=== PATIENT | male | born 1965 | race Caucasian/White ===

== ENCOUNTER 2016-09-23 12:19 | Outpatient (CLI) | payer OTHER | END 2016-09-23 12:20 | disposition home or self-care (01) | DX: M50.30 Other cervical disc degeneration, unspecified cervical region (principal); M47.9 Spondylosis, unspecified ==

== ENCOUNTER 2017-01-22 13:10 | Emergency (ER) | payer OTHER ==
--- NOTE | 2017-01-22 14:45 | ED Physician Documentation ---
History of Present Illness - Stated complaint Stated Complaint: R ARM PX - Chief complaint Chief Complaint: Ext Problem - History obtained from History obtained from: Patient - History of Present Illness Timing: How many days ago (2) Pain level max: 8 Pain level now: 6 Improved by: rest Worsened by: movement, heat - Additonal information Additional information: R shoulder pain x 2 days. Doesn't recall any injury. Pain increased after fishing today. pt is right handed. Review of Systems GI: denies: Abdominal Pain, Nausea, Vomiting Skin: denies: Rash Musculoskeletal: denies: Neck pain, Back pain Neurologic: denies: Focal weakness, Numbness, Headache PD PAST MEDICAL HISTORY - Past Medical History Cardiovascular: Hypertension, High cholesterol Respiratory: Sleep apnea, CPAP use Neuro: None Endocrine/Autoimmune: None GI: None : None HEENT: None, Other Psych: None Musculoskeletal: Osteoarthritis, Other Derm: None - Past Surgical History Past Surgical History: Yes Ortho: Rotator cuff repair, Shoulder arthroplasty, Arthroscopic surgery, Other - Present Medications Home Medications: Ambulatory Orders Medication Instructions Recorded Confirmed Lisinopril 20 mg PO DAILY 12/28/13 01/25/15 Penicillin Vk 500 mg PO Q6H 7 Days 01/26/15 Hydrocodone/Acetaminophen 1 - 2 each PO Q6H PRN #14 tablet 01/22/17 [Hydrocodon-Acetaminophen 5-325] Meloxicam [Mobic] 7.5 mg PO BID PRN #20 tablet 01/22/17 - Allergies Allergies/Adverse Reactions: Allergies Allergy/AdvReac Type Severity Reaction Status Date / Time No Known Drug Allergies Allergy Verified 01/22/17 13:20 - Social History Does the pt smoke?: Yes Smoking Status: Current every day smoker Does the pt drink ETOH?: Yes Does the pt have substance abuse?: No - Immunizations Immunizations are current?: Yes - POLST Patient has POLST: No PD ED PE NORMAL - Vitals Vital signs reviewed: Yes - General General: Alert and oriented X 3, No acute distress - Derm Derm: Warm and dry - Extremities Extremities: Other (limited ROM 2/2 pain. NVI including axillary nerve. no swelling or deformity. TTP over the AC joint. No gross deformity. No pain with supination or pronation.) - Neuro Neuro: Alert and oriented X 3 - Psych Psych: Normal mood, Normal affect Results - Vitals Vitals: Vital Signs - 24 hr 01/22/17 01/22/17 13:17 16:13 Temperature 36.7 C Heart Rate 90 86 Respiratory 18 16 Rate Blood Pressure 160/97 H 141/93 H O2 Saturation 97 96 Oxygen O2 Source Room air - Rads (name of study) R shoulder xRAY Radiology: Prelim report reviewed, EMP read contemporaneously, See rad report ( Increasing marked calcific tendinitis. ) PD MEDICAL DECISION MAKING - ED course Complexity details: reviewed results, re-evaluated patient, considered differential, d/w patient, d/w family ED course: Patient is a 51-year-old male who presents to the emergency department with right shoulder pain. He was tender over the AC joint, therefore an x-ray was obtained which shows increasing calcific tendinitis. Will trial on nonsteroidal anti-inflammatory medications and given steroids here. Will also write pain medication for home. Placed in a sling for comfort for the next 2-3 days. Will have him follow-up with his PCP for further evaluation and care. No evidence of septic joint. No evidence of fracture, dislocation. Patient counseled regarding signs and symptoms for which I believe and urgent re- evaluation would be necessary. Patient with good understanding of and agreement to plan and is comfortable going home at this time This document was made in part using voice recognition software. While efforts are made to proofread this document, sound alike and grammatical errors may occur. Departure - Departure Disposition: 01 Home, Self Care Clinical Impression: Calcific tendinitis Condition: Good Instructions: ED Tendinitis Calcific Follow-Up: Garry Soares MD [Primary Care Provider] - Within 1 week Prescriptions: Hydrocodone/Acetaminophen [Hydrocodon-Acetaminophen 5-325] 1 - 2 each PO Q6H PRN #14 tablet PRN Reason: pain Meloxicam [Mobic] 7.5 mg PO BID PRN #20 tablet PRN Reason: pain Comments: Return if you worsen. Wear the sling for the next 2-3 days and then start to gently move your shoulder. Follow-up with your doctor for further evaluation. You may benefit from physical therapy and/or an orthopedics referral. Do not drink alcohol or drive while on narcotic pain medicine. Note that many narcotic pain relievers also contain tylenol/acetaminophen. Please ensure that your total dose of acetaminophen from all sources does not exceed 3 grams (3000mg) per day. You may constipated on this medication, take a stool softener such as "Colace" twice a day while you are on it. Also recommend a [id number] laxative such as senna or MiraLAX any day that you do not have a bowel movement. If you received narcotic pain medication in the emergency department, do not drive or operate machinery for the next 24 hours. Discharge Date/Time: 01/22/17 16:19
[2017-01-22] MEDS ORDERED: CYCLOBENZAPRINE 10 MG TABLET PO STA (14:48)
[2017-01-22] MEDS ORDERED: KETOROLAC 60 MG/2 ML VIAL IM STA (14:48)
[2017-01-22] MEDS ORDERED: DEXAMETHASONE 10 MG/ML VIAL PO STA (14:48)
[2017-01-22] MEDS ORDERED: DEXAMETHASONE 10 MG/ML VIAL ONE (15:00)
[2017-01-22] MEDS ORDERED: CHERRY SYRUP 10 ML UDC PO ONE (15:00)
[2017-01-22] MEDS ORDERED: CYCLOBENZAPRINE 10 MG TABLET PO ONE (15:00)
[2017-01-22] MEDS ORDERED: KETOROLAC 60 MG/2 ML VIAL ONE (15:00)
--- NOTE | 2017-01-22 15:35 | XRAY Preliminary Report ---
Exam: XR Shoulder 3 View RT IMPRESSION: Increasing marked calcific tendinitis. [facility] SITE ID: [id number]
--- NOTE | 2017-01-22 15:44 | XRAY Report ---
EXAM: RIGHT SHOULDER RADIOGRAPHY EXAM DATE: 01/22/2017 03:21 PM. CLINICAL HISTORY: Right shoulder pain, tenderness over AC joint. COMPARISON: 08/28/2011. TECHNIQUE: 3 views. FINDINGS: Bones: Normal. No fracture or bone lesion. Joints: The glenohumeral and acromioclavicular joints are normal. Soft tissues: Increasing dystrophic calcifications at the supraspinatus musculotendinous junction now almost 10 mm in maximum caliber, previously roughly 2-3 mm. IMPRESSION: Increasing marked calcific tendinitis. [facility] Referring Provider Line: [phone] SITE ID: [id number]
[2017-01-22 16:13] VITALS: BP 141/93
== END 2017-01-22 16:19 | disposition home or self-care (01) ==
LOC: ED 13:10
DX: M75.31 Calcific tendinitis of right shoulder (principal); I10 Essential (primary) hypertension; E78.00 Pure hypercholesterolemia, unspecified; G47.30 Sleep apnea, unspecified; M19.90 Unspecified osteoarthritis, unspecified site; F17.200 Nicotine dependence, unspecified, uncomplicated
CPT/HCPCS: 73030; 96372; 99283; A9270

== ENCOUNTER 2017-12-31 23:40 | Emergency (ER) | payer OTHER ==
[2018-01-01 02:37] LABS: ALBUMIN 3.6 g/dL (3.2-5.5); ALBUMIN/GLOBULIN RATIO 1.1 (1.0-2.2); BILIRUBIN,TOTAL 0.5 mg/dL (0.2-1.0); CALCIUM 9.1 mg/dL (8.5-10.3); CREATININE 1.1 mg/dL (0.6-1.2); TOTAL PROTEIN 6.9 g/dL (6.7-8.2)
[2018-01-01 02:40] LABS: BASOPHILS % (AUTO) 0.2 %; EOSINOPHILS # (AUTO) 0.2 10^3/uL (0.0-0.7); EOSINOPHILS % (AUTO) 2.1 %; HGB - HEMOGLOBIN 14.6 g/dL (14.0-18.0); LYMPHOCYTES # (AUTO) 4.1 10^3/uL (1.5-3.5); LYMPHOCYTES % (AUTO) 35.6 %; MEAN CORPUSCULAR HEMOGLOBIN 30.8 pg (27.0-31.0); MEAN CORPUSCULAR HGB CONC 33.8 g/dL (32.0-36.0); MEAN CORPUSCULAR VOLUME 90.9 fL (80.0-94.0); MEAN PLATELET VOLUME 8.7 fL (7.4-11.4); MONOCYTES # (AUTO) 1.3 10^3/uL (0.0-1.0); NEUTROPHILS # (AUTO) 5.8 10^3/uL (1.5-6.6); NEUTROPHILS % (AUTO) 51.1 %; PLT - PLATELET COUNT 230 10^3/uL (130-450); RED BLOOD COUNT 4.73 10^6/uL (4.70-6.10); RED CELL DISTRIBUTION WIDTH 14.9 % (12.0-15.0); WHITE BLOOD COUNT 11.4 x10^3/uL (4.8-10.8)
--- NOTE | 2018-01-01 02:49 | ED Physician Documentation ---
History of Present Illness - Stated complaint Stated Complaint: HIGH BLOOD PRESSURE - Chief complaint Chief Complaint: General - History obtained from History obtained from: Patient, Family - History of Present Illness Timing: How many weeks ago (1) - Additonal information Additional information: 52-year-old male with a history of hypertension has been recently increased on his metoprolol 200 mg per day. He states that he just does not feel quite right and his blood pressures been elevated. He is come in this evening with blood pressures up to 170 systolic. He does state that he had fish for dinner tonight. He denies any alcohol use. Review of Systems Constitutional: denies: Fever Eyes: denies: Decreased vision Ears: denies: Ear pain Nose: denies: Congestion Throat: denies: Sore throat Cardiac: denies: Chest pain / pressure, Palpitations Respiratory: denies: Dyspnea, Cough GI: denies: Abdominal Pain, Nausea, Vomiting : denies: Dysuria, Frequency Skin: denies: Rash Musculoskeletal: denies: Neck pain, Back pain, Extremity pain Neurologic: denies: Generalized weakness, Focal weakness, Numbness PD PAST MEDICAL HISTORY - Past Medical History Cardiovascular: Hypertension, High cholesterol Respiratory: Sleep apnea, CPAP use Endocrine/Autoimmune: None GI: None : None HEENT: None, Other Psych: None Musculoskeletal: Osteoarthritis, Other Derm: None - Past Surgical History Past Surgical History: Yes Ortho: Rotator cuff repair, Shoulder arthroplasty, Arthroscopic surgery, Other - Present Medications Home Medications: Ambulatory Orders Medication Instructions Recorded Confirmed Lisinopril 20 mg PO DAILY 12/28/13 01/25/15 Penicillin Vk 500 mg PO Q6H 7 Days tablet 01/26/15 Hydrocodone/Acetaminophen 1 - 2 each PO Q6H PRN #14 tablet 01/22/17 [Hydrocodon-Acetaminophen 5-325] Meloxicam [Mobic] 7.5 mg PO BID PRN #20 tablet 01/22/17 - Allergies Allergies/Adverse Reactions: Allergies Allergy/AdvReac Type Severity Reaction Status Date / Time No Known Drug Allergies Allergy Verified 01/22/17 13:20 - Social History Does the pt smoke?: Yes Smoking Status: Current every day smoker Does the pt drink ETOH?: Yes Does the pt have substance abuse?: No - Immunizations Immunizations are current?: Yes - POLST Patient has POLST: No PD ED PE NORMAL - Vitals Vital signs reviewed: Yes (hypertensive moderate) - General General: Alert and oriented X 3, No acute distress, Well developed/nourished - HEENT HEENT: Atraumatic, PERRL, EOMI - Neck Neck: Supple, no meningeal sign, No bony TTP - Cardiac Cardiac: RRR, No murmur - Respiratory Respiratory: No respiratory distress, Clear bilaterally - Abdomen Abdomen: Soft, Non tender - Back Back: No CVA TTP, No spinal TTP - Derm Derm: Normal color, Warm and dry, No rash - Extremities Extremities: No deformity, No edema - Neuro Neuro: Alert and oriented X 3, veterans' coordinator 2-12 intact, No motor deficit, No sensory deficit, Normal speech Eye Opening: Spontaneous Motor: Obeys Commands Verbal: Oriented GCS Score: 15 - Psych Psych: Normal mood, Normal affect Results - Vitals Vitals: Vital Signs - 24 hr 12/31/17 01/01/18 01/01/18 23:54 01:11 03:10 Temperature 36.7 C Heart Rate 86 78 82 Respiratory 17 20 15 Rate Blood Pressure 178/105 H 148/86 H 142/89 H O2 Saturation 97 94 96 Oxygen O2 Source Room air - EKG (time done) 0216 Rate: Rate (enter#) (77) Rhythm: NSR Ischemia: Other (flat T's) Compare to prior EKG: Changed from prior EKG (SPT 01-31-18 rhythm has changed to sinus and the rate has slowed. ) Computer interpretation: Agree with computer - Labs Labs: Laboratory Tests 01/01/18 01/01/18 01/01/18 02:20 02:20 02:20 WBC 11.4 H RBC 4.73 Hgb 14.6 Hct 43.0 MCV 90.9 MCH 30.8 MCHC 33.8 RDW 14.9 Plt Count 230 MPV 8.7 Neut # (Auto) 5.8 Lymph # (Auto) 4.1 H [place] # (Auto) 1.3 H Eos # (Auto) 0.2 Baso # (Auto) 0.0 Absolute Nucleated RBC 0.00 Nucleated RBC % 0.0 Sodium 138 Potassium 3.6 Chloride 105 Carbon Dioxide 25 Anion Gap 8.0 BUN 12 Creatinine 1.1 Estimated GFR (MDRD) 70 L Glucose 128 H Calcium 9.1 Total Bilirubin 0.5 AST 27 ALT 45 Alkaline Phosphatase 59 Troponin I < 0.04 Total Protein 6.9 Albumin 3.6 Globulin 3.3 Albumin/Globulin Ratio 1.1 Lipase 26 Procedures - IVC sono (time) 0100 Bedside IVC sono: IVC measures (cm) (1.67), Euvolemia PD MEDICAL DECISION MAKING - ED course Complexity details: reviewed old records, reviewed results, re-evaluated patient , considered differential, d/w patient, d/w family ED course: 52-year-old male with a history of hypertension on metoprolol has hypertension and without specific symptoms he is come to the emergency department today with an elevated blood pressure. Blood pressure stabilizes here in the emergency department and I suspect this may be a pressure spike secondary to excessive salt consumption after eating some fish. I discussed with the patient hypertensive urgency and relative numbers of blood pressures to be concerned about including diastolics over 120 and systolics over 200. I have asked patient to follow-up with Dr. Soares and have indicated he may need more than one agent. I also did indicate the patient he may have side effects from the metoprolol that are making him not feel well. He has no specificity to what he does not feel well from. - Sepsis Event Vital Signs: Vital Signs - 24 hr 12/31/17 01/01/18 01/01/18 23:54 01:11 03:10 Temperature 36.7 C Heart Rate 86 78 82 Respiratory 17 20 15 Rate Blood Pressure 178/105 H 148/86 H 142/89 H O2 Saturation 97 94 96 Oxygen O2 Source Room air Departure - Departure Disposition: 01 Home, Self Care Clinical Impression: Hypertension Qualifiers: Hypertension type: essential hypertension Qualified Code(s): I10 - Essential ( primary) hypertension Condition: Stable Instructions: ED HTN Established Follow-Up: Garry Soares MD [Primary Care Provider] - Discharge Date/Time: 01/01/18 03:27
[2018-01-01 03:10] VITALS: BP 142/89
== END 2018-01-01 03:27 | disposition home or self-care (01) ==
LOC: ED 23:40
DX: I10 Essential (primary) hypertension (principal); E86.0 Dehydration; E78.00 Pure hypercholesterolemia, unspecified; F17.200 Nicotine dependence, unspecified, uncomplicated
CPT/HCPCS: 36415; 80053; 83690; 84484; 85025; 93005; 99283

== ENCOUNTER 2018-10-07 08:00 | Outpatient (CLI) | payer BC, OTHER ==
[2018-10-07 12:53] LABS: BASOPHILS # (AUTO) 0.1 10^3/uL (0.0-0.1); BASOPHILS % (AUTO) 0.9 %; EOSINOPHILS # (AUTO) 0.3 10^3/uL (0.0-0.7); EOSINOPHILS % (AUTO) 2.7 %; HGB - HEMOGLOBIN 15.8 g/dL (14.0-18.0); LYMPHOCYTES # (AUTO) 3.3 10^3/uL (1.5-3.5); LYMPHOCYTES % (AUTO) 31.5 %; MEAN CORPUSCULAR HEMOGLOBIN 30.3 pg (27.0-31.0); MEAN CORPUSCULAR HGB CONC 33.3 g/dL (32.0-36.0); MEAN CORPUSCULAR VOLUME 91.1 fL (80.0-94.0); MEAN PLATELET VOLUME 9.8 fL (7.4-11.4); MONOCYTES # (AUTO) 1.1 10^3/uL (0.0-1.0); MONOCYTES % (AUTO) 10.6 %; NEUTROPHILS # (AUTO) 5.6 10^3/uL (1.5-6.6); NEUTROPHILS % (AUTO) 54.3 %; PLT - PLATELET COUNT 253 10^3/uL (130-450); RED BLOOD COUNT 5.21 10^6/uL (4.70-6.10); RED CELL DISTRIBUTION WIDTH 14.5 % (12.0-15.0); WHITE BLOOD COUNT 10.3 x10^3/uL (4.8-10.8)
[2018-10-07 13:19] LABS: PLATELET ESTIMATE, MANUAL NORMAL (130-450,000) (NORMAL); PLATELET MORPHOLOGY NORMAL APPEARANCE (NORMAL); RBC MORPHOLOGY (MULTIPLE) NORMAL APPEARANCE (NORMAL)
[2018-10-07 13:23] LABS: ALBUMIN 4.1 g/dL (3.2-5.5); ALBUMIN/GLOBULIN RATIO 1.1 (1.0-2.2); ALKALINE PHOSPHATASE 64 IU/L (42-121); ALT ALANINE AMINOTRANSFERASE 42 IU/L (10-60); AST ASPARTATE AMINOTRANSFERASE 30 IU/L (10-42); BILIRUBIN,TOTAL 0.9 mg/dL (0.2-1.0); BUN - BLOOD UREA NITROGEN 19 mg/dL (6-20); CARBON DIOXIDE - CO2 26 mmol/L (21-32); CHLORIDE 102 mmol/L (101-111); CHOL/HDL RATIO 8.8 (<5.0); CHOLESTEROL 255 mg/dL; CREATININE 1.1 mg/dL (0.6-1.2); GFR - MDRD 70 (>89); GLUCOSE 138 mg/dL (70-100); HDL CHOLESTEROL 29 mg/dL; SODIUM 136 mmol/L (135-145); TOTAL PROTEIN 7.7 g/dL (6.7-8.2)
[2018-10-07 13:32] LABS: HB2 TOTAL 17.3 g/dL; HEMOGLOBIN A1C 0.9 g/dL; HEMOGLOBIN A1C % 6.9 % (4.6-6.2)
[2018-10-07 13:50] LABS: LDL CHOLESTEROL,DIRECT 135 mg/dL; LDLD/HDL RATIO 4.7 (<3.6)
== END 2018-10-07 23:59 | disposition home or self-care (01) ==
LOC: LAB.WCP 08:00
PROVIDERS: ATTEND Family Medicine
DX: E11.9 Type 2 diabetes mellitus without complications (principal); I48.0 Paroxysmal atrial fibrillation; I10 Essential (primary) hypertension; Z12.5 Encounter for screening for malignant neoplasm of prostate
CPT/HCPCS: 36415; 80053; 80061; 83036; 83721; 84153; 85025

== ENCOUNTER 2018-12-21 17:54 | Outpatient (CLI) | payer BC ==
--- NOTE | 2018-12-22 09:52 | XRAY Report ---
Reason: PATELLOFEMORAL DISORDER OF RIGHT KNEE Procedure Date: 12/21/2018 Accession Number: [id number] / [id number] Procedure: XR - Knee 3 View RT CPT Code: FULL RESULT: EXAM: RIGHT KNEE RADIOGRAPHY EXAM DATE: 12/21/2018 06:13 PM. CLINICAL HISTORY: Patellofemoral disorder of right knee. COMPARISON: None. TECHNIQUE: 3 views. FINDINGS: Bones: Normal. No fractures or bone lesions. Joints: Note is made of chondrocalcinosis. There is no joint effusion. There is no subluxation. Joint spaces are mostly preserved. Soft Tissues: Normal. No soft tissue swelling. IMPRESSION: Chondrocalcinosis. [facility]
== END 2018-12-21 17:55 | disposition home or self-care (01) ==
LOC: DI 17:54
PROVIDERS: ATTEND Family Medicine
DX: M11.261 Other chondrocalcinosis, right knee (principal); M22.2X1 Patellofemoral disorders, right knee

== ENCOUNTER 2019-07-14 11:40 | Outpatient (CLI) | payer BC ==
[2019-07-14 18:54] LABS: CALCIUM 9.2 mg/dL (8.5-10.3)
[2019-07-14 18:57] LABS: MICROALBUM/CREATININE RATIO,UR 178.6 ug/mg (<30.0)
[2019-07-14 19:43] LABS: HB2 TOTAL 15.4 g/dL; HEMOGLOBIN A1C 0.83 g/dL; HEMOGLOBIN A1C % 7.1 % (4.6-6.2)
== END 2019-07-14 23:59 | disposition home or self-care (01) ==
LOC: LAB.WCP 11:40
PROVIDERS: ATTEND Family Medicine
DX: E11.9 Type 2 diabetes mellitus without complications (principal); I48.91 Unspecified atrial fibrillation
CPT/HCPCS: 36415; 80048; 82043; 82570; 83036; 84443

== ENCOUNTER 2021-01-07 08:00 | Outpatient (CLI) | payer BC, OTHER | END 2021-01-07 08:01 | disposition home or self-care (01) | LOC: LAB.N 08:00 | PROVIDERS: ATTEND Family Medicine | DX: R05 Cough (principal); Z20.822 Contact with and (suspected) exposure to COVID-19 ==

== ENCOUNTER 2021-01-07 14:38 | Outpatient (CLI) | payer BC, OTHER ==
--- NOTE | 2021-01-07 16:20 | XRAY Report ---
PROCEDURE: Chest 2 View X-Ray INDICATIONS: Cough TECHNIQUE: 2 view(s) of the chest. COMPARISON: 01/31/2014 FINDINGS: Surgical changes and devices: None. Lungs and pleura: No pleural effusions or pneumothorax. Increased interstitial markings in both lung s. No focal consolidation. Mediastinum: Mediastinal contours are normal. Heart size is normal. Bones and chest wall: No suspicious bony abnormalities. Soft tissues appear unremarkable. IMPRESSION: Increased interstitial markings throughout both lungs. Findings could represent pulmonary edema versus atypical infection. Correlate with BNP, white blood cell count, and other relevant clin ical parameters. Reviewed by: Ziyad Alston MD on 01/07/2021 4:18 PM PDT Approved by: Ziyad Alston MD on 01/07/2021 4:18 PM PDT Station ID: [id number]
== END 2021-01-07 23:59 | disposition home or self-care (01) ==
LOC: DI.N 14:38
PROVIDERS: ATTEND Family Medicine
DX: R91.8 Other nonspecific abnormal finding of lung field (principal)

== ENCOUNTER 2021-02-27 08:00 | Outpatient (CLI) | payer OTHER ==
[2021-02-27 18:16] LABS: ALBUMIN 4.2 g/dL (3.2-5.5); ALBUMIN/GLOBULIN RATIO 0.7 (1.0-2.2); BILIRUBIN,TOTAL 0.9 mg/dL (0.2-1.0); CALCIUM 9.4 mg/dL (8.5-10.3); TOTAL PROTEIN 10.2 g/dL (6.7-8.2)
[2021-02-27 18:34] LABS: THYROID STIMULATING HORMONE 1.83 uIU/mL (0.34-5.60)
[2021-02-27 20:28] LABS: ESTIMATED AVERAGE GLUCOSE 137 mg/dL (70-100); HEMOGLOBIN A1c% 6.4 % (4.27-6.07)
== END 2021-02-27 23:59 | disposition home or self-care (01) ==
LOC: LAB.WCP 08:00
PROVIDERS: ATTEND Family Medicine
DX: E78.5 Hyperlipidemia, unspecified (principal); E11.9 Type 2 diabetes mellitus without complications; I10 Essential (primary) hypertension
CPT/HCPCS: 36415; 80053; 82043; 83036; 84443

== ENCOUNTER 2021-08-19 18:16 | Observation (INO) | payer OTHER ==
[2021-08-19] MEDS ORDERED: SODIUM CHLORIDE 0.9% 1,000 ML IV STA ×2 (18:58→20:05)
[2021-08-19] MEDS ORDERED: HYDROmorphone 1 MG/ML CARPUJECT IVP STA ×3 (18:58→20:05)
--- NOTE | 2021-08-19 19:11 | ED Physician Documentation ---
History of Present Illness - Stated complaint Stated Complaint: RIGHT SIDE PAIN - Chief complaint Chief Complaint: Abd Pain - Additonal information Additional information: 56-year-old male presents emergency department for evaluation of Acute right- sided abdominal and rib wall pain. He reports that it feels like he has been punched in the ribs. He is unable to lay supine secondary to the pain. Denies fevers, vomiting, hematuria dysuria or frequency. Pain began yesterday has been intermittent initially but then now constant in nature. No history of similar. Review of Systems Constitutional: denies: Fever, Chills Eyes: reports: Reviewed and negative Ears: reports: Reviewed and negative Throat: reports: Reviewed and negative Cardiac: reports: Reviewed and negative Respiratory: reports: Reviewed and negative GI: reports: Abdominal Pain. denies: Nausea, Vomiting : reports: Reviewed and negative Skin: reports: Reviewed and negative Musculoskeletal: reports: Reviewed and negative Neurologic: reports: Reviewed and negative PD PAST MEDICAL HISTORY - Past Medical History Cardiovascular: Hypertension, High cholesterol Respiratory: Sleep apnea, CPAP use Endocrine/Autoimmune: None GI: None : None HEENT: None, Other Psych: None Musculoskeletal: Osteoarthritis, Other Derm: None - Past Surgical History Past Surgical History: Yes Ortho: Rotator cuff repair, Shoulder arthroplasty, Arthroscopic surgery, Other - Present Medications Home Medications: Ambulatory Orders Medication Instructions Recorded Confirmed Lisinopril 20 mg PO DAILY 12/28/13 01/25/15 Penicillin Vk 500 mg PO Q6H 7 Days tablet 01/26/15 Hydrocodone/Acetaminophen 1 - 2 each PO Q6H PRN #14 tablet 01/22/17 [Hydrocodon-Acetaminophen 5-325] Meloxicam [Mobic] 7.5 mg PO BID PRN #20 tablet 01/22/17 - Allergies Allergies/Adverse Reactions: Allergies Allergy/AdvReac Type Severity Reaction Status Date / Time No Known Drug Allergies Allergy Verified 08/19/21 18:32 - Social History Does the pt smoke?: Yes Smoking Status: Current every day smoker Does the pt drink ETOH?: Yes Does the pt have substance abuse?: No - Immunizations Immunizations are current?: Yes - POLST Patient has POLST: No PD ED PE NORMAL - General General: Alert and oriented X 3, No acute distress, Well developed/nourished - HEENT HEENT: Atraumatic, Moist mucous membranes - Neck Neck: Supple, no meningeal sign, No adenopathy, No JVD - Cardiac Cardiac: RRR, No murmur, No gallop - Respiratory Respiratory: No respiratory distress, Clear bilaterally (diminished right posterior woods) - Abdomen Abdomen: Normal bowel sounds, Soft, Non tender, Other (Unable to elicit abdominal tenderness by deep or light palpation with patient in a sitting or standing position. No CVA tenderness. However the moment patient lays flat he screams in pain and sits up immediately) - Back Back: No CVA TTP, No spinal TTP - Derm Derm: Normal color, Warm and dry, No rash - Extremities Extremities: No deformity - Neuro Neuro: Alert and oriented X 3, stores despatch hand 2-12 intact, No motor deficit Eye Opening: Spontaneous Motor: Obeys Commands Verbal: Oriented GCS Score: 15 Results - Vitals Vitals: Vital Signs - 24 hr 08/19/21 08/19/21 08/19/21 18:30 20:52 20:58 Temperature 36.8 C Heart Rate 116 H 97 Respiratory 22 18 Rate Blood Pressure 160/105 H 153/101 H O2 Saturation 95 91 L 86 L 08/19/21 20:59 Temperature Heart Rate Respiratory Rate Blood Pressure O2 Saturation 94 Oxygen O2 Source Nasal cannula Oxygen Flow Rate 2 - Labs Labs: Laboratory Tests 08/19/21 08/19/21 08/19/21 18:50 19:00 19:00 WBC 17.2 H RBC 4.38 L Hgb 13.6 L Hct 39.5 L MCV 90.2 MCH 31.1 H MCHC 34.4 RDW 17.1 H Plt Count 208 MPV 10.0 Neut # (Auto) Not Reportable Lymph # (Auto) Not Reportable [place] # (Auto) Not Reportable Eos # (Auto) Not Reportable Baso # (Auto) Not Reportable Absolute Nucleated RBC Not Reportable Total Counted 100 Band Neuts % (Manual) 12 H Reactive Lymphs % (Man) 2 Abnorm Lymph % (Manual) 0 Metamyelocytes % 2 H Nucleated RBC % Not Reportable Neutrophils # (Manual) 10.0 H Lymphocytes # (Manual) 5.0 H Monocytes # (Manual) 1.5 H Eosinophils # (Manual) 0.3 Basophils # (Manual) 0.0 Nucleated RBCs 1 Differential Comment MANUAL DIFFERENTIAL Platelet Estimate NORMAL (130-450,000) Platelet Morphology NORMAL APPEARANCE RBC Morph Micro Appear 1+ ANISOCYTOSIS Sodium 130 L Potassium 3.9 Chloride 98 L Carbon Dioxide 23 Anion Gap 9.0 BUN 19 Creatinine 1.1 Estimated GFR (MDRD) 69 L Glucose 126 H Lactic Acid Calcium 9.4 Total Bilirubin 0.7 AST 20 ALT 27 Alkaline Phosphatase 64 Total Protein 11.0 H Albumin 3.9 Globulin 7.1 H Albumin/Globulin Ratio 0.5 L Lipase 30 Urine Color YELLOW Urine Clarity HAZY Urine pH 5.5 Ur Specific [place] >=1.030 H Urine Protein 100 H Urine Glucose (UA) NEGATIVE Urine Ketones NEGATIVE Urine Occult Blood SMALL H Urine Nitrite NEGATIVE Urine Bilirubin NEGATIVE Urine Urobilinogen 0.2 (NORMAL) Ur Leukocyte Esterase NEGATIVE Urine RBC 6-10 H Urine WBC 0-3 Ur Squamous Epith Cells FEW Squamous Urine Bacteria None Seen Ur Microscopic Review INDICATED Urine Culture Comments NOT INDICATED 08/19/21 20:05 WBC RBC Hgb Hct MCV MCH MCHC RDW Plt Count MPV Neut # (Auto) Lymph # (Auto) [place] # (Auto) Eos # (Auto) Baso # (Auto) Absolute Nucleated RBC Total Counted Band Neuts % (Manual) Reactive Lymphs % (Man) Abnorm Lymph % (Manual) Metamyelocytes % Nucleated RBC % Neutrophils # (Manual) Lymphocytes # (Manual) Monocytes # (Manual) Eosinophils # (Manual) Basophils # (Manual) Nucleated RBCs Differential Comment Platelet Estimate Platelet Morphology RBC Morph Micro Appear Sodium Potassium Chloride Carbon Dioxide Anion Gap BUN Creatinine Estimated GFR (MDRD) Glucose Lactic Acid 0.9 Calcium Total Bilirubin AST ALT Alkaline Phosphatase Total Protein Albumin Globulin Albumin/Globulin Ratio Lipase Urine Color Urine Clarity Urine pH Ur Specific [place] Urine Protein Urine Glucose (UA) Urine Ketones Urine Occult Blood Urine Nitrite Urine Bilirubin Urine Urobilinogen Ur Leukocyte Esterase Urine RBC Urine WBC Ur Squamous Epith Cells Urine Bacteria Ur Microscopic Review Urine Culture Comments - Rads (name of study) CXR Radiology: Final report received (Prominent interstitial markings. This could be due to pulmonary edema or atypical infection. Less likely interstitial lung disease) CT Chest abd/pelvis Radiology: Final report received (Focal consolidation right lower lobe. Patchy bibasilar atelectasis. Minimal right pleural effusion. Unremarkable CT of the abdomen and pelvis) PD MEDICAL DECISION MAKING - ED course Complexity details: reviewed results, re-evaluated patient, considered differential, d/w patient ED course: 56-year-old male presents emergency department for evaluation of acute right sided abdominal and chest wall pain. Reports it feels like he was punched in the chest. Pain began about 24 hours ago. Patient is unable to lay flat due to the pain. He denies any cough or fevers. Patient's initial presentation showed significant pain out of proportion on the right side of his chest. Chest x-ray showed prominent interstitial markings or early pulmonary edema. Initial saturations were 94% on room air but over the course of the ED visit his saturations declined about 86% requiring 2 L nasal cannula. Saturations improved to 94% with 2 L nasal cannula. Subsequent lab testing revealed significant leukocytosis white count of 18,000. His lactate was negative. He was initially tachycardic on presentation but this improved after receiving IV fluids. Subsequent CT imaging of the chest abdomen and pelvis revealed pneumonia in the right lower lobe. I initiated ceftriaxone and azithromycin. Given that the patient is mildly hypoxic requiring oxygen therapy he was presented to Dr. Oreilly to 4 further evaluation and treatment. Respiratory PCR is pending. Further care to be dictated by inpatient hospitalist team. Patient was aware and in agreement with admission for treatment of pneumonia Departure - Departure Disposition: ED Place in Observation Clinical Impression: Hypoxia CAP (community acquired pneumonia) Qualifiers: Laterality: right Lung location: lower lobe of lung Qualified Code(s): J18.9 - Pneumonia, unspecified organism
[2021-08-19 19:14] LABS: BASOPHILS % (AUTO) 0.5 %; EOSINOPHILS % (AUTO) 0.8 %; HCT - HEMATOCRIT 39.5 % (42.0-52.0); HGB - HEMOGLOBIN 13.6 g/dL (14.0-18.0); LYMPHOCYTES % (AUTO) 29.6 %; MEAN CORPUSCULAR HEMOGLOBIN 31.1 pg (27.0-31.0); MEAN CORPUSCULAR HGB CONC 34.4 g/dL (32.0-36.0); MEAN CORPUSCULAR VOLUME 90.2 fL (80.0-94.0); MONOCYTES % (AUTO) 11.8 %; PLT - PLATELET COUNT 208 10^3/uL (130-450); RED BLOOD COUNT 4.38 10^6/uL (4.70-6.10); RED CELL DISTRIBUTION WIDTH 17.1 % (12.0-15.0); WHITE BLOOD COUNT 17.2 x10^3/uL (4.8-10.8)
[2021-08-19 19:15] LABS: BILIRUBIN,URINE NEGATIVE (NEGATIVE); GLUCOSE, URINE (UA) NEGATIVE (NEGATIVE); KETONES,URINE (UA) NEGATIVE (NEGATIVE); LEUKOCYTE ESTERASE, URINE NEGATIVE (NEGATIVE); NITRITE,URINE NEGATIVE (NEGATIVE); OCCULT BLOOD,URINE SMALL (NEGATIVE); PH,URINE 5.5 PH (5.0-7.5); PROTEIN,URINE 100 mg/dL (NEGATIVE); UROBILINOGEN,URINE 0.2 (NORMAL) E.U./dL (NORMAL)
[2021-08-19 19:23] LABS: ABNORMAL LYMPHS % (MANUAL) 0 %
[2021-08-19 19:25] LABS: CLARITY,URINE HAZY (CLEAR)
[2021-08-19 19:35] LABS: BACTERIA,URINE None Seen /HPF (None Seen); SQUAMOUS EPITHELIAL CELL,UR FEW Squamous (<= Few); WBC,URINE 0-3 /HPF (0-3)
--- NOTE | 2021-08-19 19:36 | XRAY Report ---
PROCEDURE: Chest 1 View X-Ray INDICATIONS: chest pain TECHNIQUE: One view of the chest was acquired. 2 images. COMPARISON: CXR 01/07/2021, 01/31/2014. FINDINGS: Surgical changes and devices: None. Lungs and pleura: No pleural effusions or pneumothorax. Bibasilar hazy and streaky opacity. Prominen t interstitial markings. Mediastinum: Mediastinal contours appear unchanged. Heart size is normal. Bones and chest wall: No suspicious bony lesions. Overlying soft tissues appear unremarkable. IMPRESSION: Prominent interstitial markings. This could be due to pulmonary edema or atypical infection. Less lik brandon interstitial lung disease. Additional bibasal hazy and streaky opacity which has the appearance of atelectasis. Reviewed by: Mazin Flowers MD on 08/19/2021 7:34 PM PST Approved by: Mazin Flowers MD on 08/19/2021 7:34 PM PST Station ID: [id number]
[2021-08-19] MEDS ORDERED: IOVERSOL 320 100 ML VIAL IVP ONE ×2 (19:51→21:03)
[2021-08-19 19:53] LABS: BAND NEUTROPHILS % (MANUAL) 12 %; DIFFERENTIAL COMMENT MANUAL DIFFERENTIAL; EOSINOPHILS # (MANUAL) 0.3 10^3/uL (0-0.7); LYMPHOCYTES % (MANUAL) 27 %; METAMYELOCYTES % (MANUAL) 2 %; MONOCYTES # (MANUAL) 1.5 10^3/uL (0.0-1.0); NUCLEATED RBC (MANUAL) 1 %; PLATELET ESTIMATE, MANUAL NORMAL (130-450,000) (NORMAL); PLATELET MORPHOLOGY NORMAL APPEARANCE (NORMAL); RBC MORPHOLOGY (MULTIPLE) 1+ ANISOCYTOSIS (NORMAL); REACTIVE LYMPHS % (MANUAL) 2 %
[2021-08-19 20:01] LABS: ALBUMIN 3.9 g/dL (3.2-5.5); ALBUMIN/GLOBULIN RATIO 0.5 (1.0-2.2); BILIRUBIN,TOTAL 0.7 mg/dL (0.2-1.0); CALCIUM 9.4 mg/dL (8.5-10.3); CREATININE 1.1 mg/dL (0.6-1.2); POTASSIUM 3.9 mmol/L (3.5-5.0)
--- NOTE | 2021-08-19 20:54 | CT Report ---
PROCEDURE: Abdomen/Pelvis W INDICATIONS: Right sided abd pain; unable to lay supine CONTRAST: IV CONTRAST: Optiray 320 ml: 100 PO CONTRAST: *NO PO CONTRAST TECHNIQUE: After the administration of contrast, 5 mm thick sections acquired from the diaphragms to the symphy sis. 5 mm thick coronal and sagittal reformats were acquired. For radiation dose reduction, the fol lowing was used: automated exposure control, adjustment of mA and/or kV according to patient size. COMPARISON: CT chest from today. Please refer to separate report for CT chest findings.. FINDINGS: Image quality: Excellent. ABDOMEN: Lung bases: Patchy bibasilar atelectasis and probable consolidation, right greater than left. Minimal right pleural effusion. Heart size is normal. Solid organs: Liver and spleen are normal in size and enhancement. Gallbladder is unremarkable. Bi liary system is non dilated. Pancreas enhances normally. No adrenal nodules. Kidneys demonstrate n ormal size and enhancement, without hydronephrosis. Peritoneum and bowel: Bowel loops demonstrate normal wall thickness and caliber. No free fluid or a ir. Nodes and vessels: No retroperitoneal or mesenteric adenopathy by size criteria. Aorta and inferior vena cava are normal in size. Miscellaneous: No ventral hernias. PELVIS: Genitourinary: Bladder wall thickness is normal. Miscellaneous: No inguinal hernias or adenopathy. Bones: No suspicious bony lesions. No vertebral body compression fractures. IMPRESSION: 1. Patchy bibasilar atelectasis and probable consolidation, right greater than left. Minimal right pl eural effusion. 2. No evidence of acute abdominal process. Reviewed by: Angel Manley MD on 08/19/2021 8:53 PM PST Approved by: Angel Manley MD on 08/19/2021 8:53 PM PST Station ID: [id number]
--- NOTE | 2021-08-19 20:57 | CT Report ---
PROCEDURE: CHEST W INDICATIONS: PNA; right sided abd pain CONTRAST: IV CONTRAST: Optiray 320 ml: 100 PO CONTRAST: *NO PO CONTRAST TECHNIQUE: After the administration of intravenous contrast, 1 mm axial images were acquired from the pulmonary apices through the posterior costophrenic angles. Axial 5 mm soft tissue kernel reconstructions were performed as well as 8 mm axial MIP and coronal and sagittal 5 mm reformations. For radiation dose reduction, the following was used: automated exposure control, adjustment of mA and/or kV according to patient size. COMPARISON: CT abdomen and pelvis from today. FINDINGS: Image quality: Excellent. Lungs and pleura: Focal consolidation, right lower lobe, patchy bibasilar atelectasis. Minimal right pleural effusion. Central and peripheral airways are patent and normal in caliber. Mediastinum: Heart size is normal. No pericardial effusion. No mediastinal or hilar adenopathy by size criteria. Thoracic aorta and central pulmonary arteries are normal in size. Esophagus is harris l in caliber. No hiatal hernia. Bones and chest wall: No suspicious bony lesions. No vertebral body compression fractures. No axil bisi or supraclavicular adenopathy by size criteria. The thyroid is normal in size and there are no incidental findings.. Abdomen: Visualized upper abdominal solid organs appear normal. Upper abdominal bowel loops are nor mal in caliber. IMPRESSION: 1. Focal consolidation, right lower lobe, patchy bibasilar atelectasis. 2. Minimal right pleural effusion. CLINICAL RECOMMENDATION STATEMENTS: In patients <35 years with an ITN detected on CT, MRI, or extrathyroidal ultrasound, the Committee re commends further evaluation with dedicated thyroid ultrasound if the nodule is "e1 cm and has no susp icious imaging features, and if the patient has normal life expectancy. In patients "e35 years with an ITN detected on CT, MRI, or extrathyroidal ultrasound, the Committee r ecommends further evaluation with dedicated thyroid ultrasound if the nodule is "e1.5 cm and has no s uspicious imaging features, and if the patient has normal life expectancy. (ACR, 2014) Reviewed by: Angel Manley MD on 08/19/2021 8:55 PM PST Approved by: Angel Manley MD on 08/19/2021 8:55 PM PST Station ID: [id number]
[2021-08-19] MEDS ORDERED: AZITHROMYCIN INJ 1,000 MG in SODIUM CHLORIDE 0.9% 250 ML IV STA (20:59)
[2021-08-19] MEDS ORDERED: cefTRIAXone 2 GM in SODIUM CHLORIDE 0.9% MINIBAG 100 ML IV STA (20:59)
[2021-08-19] MEDS ORDERED: KETOROLAC 30 MG/ML VIAL IVP STA (21:07)
[2021-08-19] MEDS ORDERED: ONDANSETRON 4 MG/2 ML VIAL IVP PRN (21:08)
[2021-08-19] MEDS ORDERED: ACETAMINOPHEN 325 MG TABLET PO PRN (21:08)
[2021-08-19] MEDS ORDERED: oxyCODONE 5 MG TABLET PO PRN (21:08)
[2021-08-19] MEDS ORDERED: SODIUM CHLORIDE FLUSH 0.9% 10 ML SYRINGE IVP PRN (21:08)
--- NOTE | 2021-08-19 21:15 | HISTORY & PHYSICAL EXAMINATION ---
Chief Complaint - Chief Complaint Chief Complaint: right-sided chest pain History of Present Illness - Admitted From Admitted From:: [facility] ED - History Obtained From Records Reviewed: yes History obtained from: patient - History of Present Illness HPI Comment/Other: 56-year-old male who presented to the ED with complaint of right sided pleuritic pain. He points to his ribs on the right side. Symptoms started 2 days ago. He denies any trauma or injury. He has a nonproductive cough. He denied chest pain, dyspnea, abdominal pain, nausea, vomiting, fever or chills. He was noted to have a white blood cell count of 17.2 in the ED. Further work-up included CT of the abdomen pelvis as well as chest. This showed right-sided consolidation. The patient had difficulties laying flat for the CT due to the pain. As a result he received a total of 2 mg of Dilaudid IV in the ED. He subsequently became hypoxic with oxygen dropping to 86%. He required 2 L of oxygen via nasal cannula to keep his oxygen at 94%. He was presented for admission for continued management. He was given a dose of Rocephin and azithromycin in the ED. He also received a bolus of normal saline in the ED. History - Past Medical History Cardiovascular: reports: Hypertension, High cholesterol Respiratory: reports: Sleep apnea, CPAP use Endocrine/Autoimmune: reports: None GI: reports: None : reports: None HEENT: reports: None, Other Psych: reports: None Musculoskeletal: reports: Osteoarthritis, Other Derm: reports: None MRSA Hx?: No - Past Surgical History Ortho: reports: Rotator cuff repair, Shoulder arthroplasty, Arthroscopic surgery, Other - Family & Social History Family History Comment/Other: Per records, the patient is adopted and does not know either his biological parents or siblings. Social History Notes: He smoke about 3/4 ppd. Smoked for over 28 years. He denied alcohol or recreational substance use. - POLST Patient has POLST: No POLST Status: Full Code Meds/Allgy - Home Medications Home Medications: Ambulatory Orders Medication Instructions Recorded Confirmed Lisinopril 20 mg PO DAILY 12/28/13 01/25/15 Penicillin Vk 500 mg PO Q6H 7 Days tablet 01/26/15 Hydrocodone/Acetaminophen 1 - 2 each PO Q6H PRN #14 tablet 01/22/17 [Hydrocodon-Acetaminophen 5-325] Meloxicam [Mobic] 7.5 mg PO BID PRN #20 tablet 01/22/17 - Allergies Allergies/Adverse Reactions: Allergies Allergy/AdvReac Type Severity Reaction Status Date / Time No Known Drug Allergies Allergy Verified 08/19/21 18:32 Review of Systems - Constitutional Constitutional: denies: Fatigue, Fever, Chills, Weakness - Eyes Eyes: denies: Pain - Ears, Nose & Throat Ears, Nose & Throat: denies: Ear pain, Sore throat - Cardiovascular Cariovascular: denies: Chest pain, Lightheadedness, Syncope - Respiratory Respiratory: reports: Pleuritic pain. denies: Cough, Wheezing, SOB at rest, SOB with exertion - Gastrointestinal Gastrointestinal: denies: Abdominal pain, Abdominal distention, Nausea, Vomiting, Reflux/heartburn - Genitourinary Genitourinary: denies: Dysuria, Frequency, Hematuria - Musculoskeletal Musculoskeletal: denies: Muscle pain, Back pain, Muscle aches, Stiffness - Integumentary Integumentary: denies: Rash, Pruritis, Lesions - Neurological Neurological: denies: General weakness, Focal weakness, Headache - Psychiatric Psychiatric: denies: Depression, Anxiety - Endocrine Endocrine: denies: Polyuria, Polydypsia - Hematologic/Lymphatic Hematologic/Lymphatic: denies: Anemia, Bruising, Petechiae Prior Level of Functionality: Patient is normally independent of activities of daily living Exam - Vital Signs Vital Signs: Vital Signs x48h Temp Pulse Resp BP Pulse Ox 08/19/21 20:59 94 08/19/21 20:58 86 L 08/19/21 20:52 97 18 153/101 H 91 L 08/19/21 18:30 36.8 C 116 H 22 160/105 H 95 - Physical Exam General Appearance: positive: Alert, Moderate distress, Severe distress Eyes Bilateral: positive: PERRL, EOMI ENT: positive: No signs of dehydration Neck: positive: No JVD, Trachea midline Respiratory: positive: Other (Pleuritic pain, Mild dyspnea. No wheezing, rhonchi or crackles) Cardiovascular: positive: Tachycardia (sinus) Abdomen: positive: Non-tender, No organomegaly, Nml bowel sounds, No distention. negative: Guarding, Rebound Back: positive: Nml inspection Skin: positive: Color nml, No rash, Warm, Dry Extremities: positive: Non-tender, Full ROM, Nml appearance, No pedal edema Neurologic/Psychiatric: positive: Oriented x3, Sensation nml, Mood/affect nml Conclusion/Plan - Problem List (1) CAP (community acquired pneumonia) Conclusion/Plan: WBC was 17.2. CT of the chest with contrast showed focal right lower lobe consolidation and patchy bibasilar atelectasis. There was minimal right pleural effusion. Patient was started on Rocephin and azithromycin in the ED. We will continue. Qualifiers: Laterality: right Lung location: lower lobe of lung Qualified Code(s): J18.9 - Pneumonia, unspecified organism (2) Hypoxia Conclusion/Plan: Patient was given 2 mg of Dilaudid IV in order for him to be comfortable enough to undergo a CT study. Patient oxygenation subsequently dropped to the 80s and required 2 L of oxygen via nasal cannula to maintain oxygen saturation above 90%. We will continue supplemental oxygen through the night. (3) Pleuritic chest pain Conclusion/Plan: Likely rate related to pneumonia Patient was given Dilaudid in the ED. He also received a dose of Toradol 30 mg IV x1. We will continue Toradol 15 mg IV every 6 hours as needed. (4) Hyponatremia Conclusion/Plan: Sodium level was 130. Likely hypovolemic hyponatremia. He was given 2 L bolus of fluid in the ED Now receiving IV hydration with normal saline at 100 mL/h. (5) Hypertension Conclusion/Plan: On lisinopril 20 mg p.o. daily. Hydralazine 10 mg every 4 hours as needed for systolic blood pressure greater than 160. Qualifiers: Hypertension type: essential hypertension (6) DAVID on CPAP Conclusion/Plan: Noncompliant with home CPAP. - Lab Results Fish Bones: 08/19/21 19:00 08/19/21 19:00 Core Measures - Anticipated LOS I expect patient to be DC'd or transferred within 96 hours.: Yes - DVT/VTE - Prophylaxis VTE/DVT Device ordered at admit?: Yes VTE/DVT Prophylaxis med ordered at admit?: Yes
[2021-08-19] MEDS ORDERED: cefTRIAXone 2 GM VIAL ONE (21:20)
[2021-08-19] MEDS ORDERED: hydrALAZINE INJ 20 MG/ML VIAL IVP PRN (21:32)
[2021-08-19] MEDS ORDERED: KETOROLAC 15 MG/ML VIAL IVP PRN (21:32)
[2021-08-19 22:04] LABS: B. PARAPERTUSSIS- RESP PCR PAN NOT DETECTED; B. PERTUSSIS- RESP PCR PANEL NOT DETECTED; C. PNEUMONIAE- RESP PCR PANEL NOT DETECTED; CORONAVIRUS 229E-RESP PCR NOT DETECTED; CORONAVIRUS HKU1-RESP PCR NOT DETECTED; CORONAVIRUS NL63-RESP PCR NOT DETECTED; CORONAVIRUS OC43-RESP PCR NOT DETECTED; HUMAN METAPNEUMOVIRUS NOT DETECTED; INFLUENZA A- RESP PCR PANEL NOT DETECTED; INFLUENZA B - RESP PCR PANEL NOT DETECTED; M. PNEUMONIAE- RESP PCR PANEL NOT DETECTED; PARAINFLUENZA VIRUS 1 NOT DETECTED; PARAINFLUENZA VIRUS 2 NOT DETECTED; PARAINFLUENZA VIRUS 3 NOT DETECTED; PARAINFLUENZA VIRUS 4 NOT DETECTED; RHINOVIRUS/ENTEROVIRUS NOT DETECTED; RSV- RESP PCR PANEL NOT DETECTED; SARS-CoV-2 -RESP PCR PANEL NOT DETECTED
[2021-08-19] MEDS: SODIUM CHLORIDE 0.9% 1,000 ML IV SCH (22:53)
[2021-08-19] MEDS: SODIUM CHLORIDE FLUSH 0.9% 10 ML SYRINGE IVP SCH (23:23)
[2021-08-20 05:17] LABS: BASOPHILS % (AUTO) 0.4 %; EOSINOPHILS % (AUTO) 0.4 %; HCT - HEMATOCRIT 34.1 % (42.0-52.0); HGB - HEMOGLOBIN 11.6 g/dL (14.0-18.0); LYMPHOCYTES % (AUTO) 24.2 %; MEAN CORPUSCULAR HEMOGLOBIN 31.3 pg (27.0-31.0); MEAN CORPUSCULAR VOLUME 91.9 fL (80.0-94.0); MEAN PLATELET VOLUME 10.2 fL (7.4-11.4); MONOCYTES % (AUTO) 11.3 %; NEUTROPHILS % (AUTO) 57.4 %; PLT - PLATELET COUNT 179 10^3/uL (130-450); RED BLOOD COUNT 3.71 10^6/uL (4.70-6.10); RED CELL DISTRIBUTION WIDTH 17.2 % (12.0-15.0); WHITE BLOOD COUNT 13.9 x10^3/uL (4.8-10.8)
[2021-08-20 05:24] LABS: CALCIUM 8.6 mg/dL (8.5-10.3); CREATININE 1.1 mg/dL (0.6-1.2); POTASSIUM 3.9 mmol/L (3.5-5.0)
[2021-08-20 05:32] LABS: ABNORMAL LYMPHS % (MANUAL) 0 %
[2021-08-20 05:56] LABS: BAND NEUTROPHILS % (MANUAL) 7 %; DIFFERENTIAL COMMENT MANUAL DIFFERENTIAL; LYMPHOCYTES # (MANUAL) 2.9 10^3/uL (1.5-3.5); LYMPHOCYTES % (MANUAL) 21 %; METAMYELOCYTES % (MANUAL) 1 %; MONOCYTES # (MANUAL) 0.6 10^3/uL (0.0-1.0); MYELOCYTES % (MANUAL) 1 %; NEUTROPHILS # (MANUAL) 10.1 10^3/uL (1.5-6.6); PLATELET ESTIMATE, MANUAL NORMAL (130-450,000) (NORMAL); RBC MORPHOLOGY (MULTIPLE) NORMAL APPEARANCE (NORMAL)
[2021-08-20] MEDS ORDERED: HYDROcod/ACETAM 7.5 MG/325 MG TABLET PO PRN (07:35)
[2021-08-20] MEDS: INSULIN ASPART 300 UNIT/3 ML PEN SUBQ SCH ×4 (07:54→20:56)
[2021-08-20] MEDS: ENOXAPARIN 40 MG/0.4 ML SYRINGE SUBQ SCH (08:11)
[2021-08-20] MEDS: SACCHAROMYCES BOULARDII 250 MG CAPSULE PO SCH ×2 (08:11→18:05)
[2021-08-20] MEDS: AZITHROMYCIN INJ 500 MG in SODIUM CHLORIDE 0.9% 250 ML IV SCH (08:19)
[2021-08-20] MEDS ORDERED: cefTRIAXone 2 GM in SODIUM CHLORIDE 0.9% MINIBAG 100 ML IV SCH (09:00)
[2021-08-20] MEDS ORDERED: cefTRIAXone 1 GM in SODIUM CHLORIDE 0.9% MINIBAG 100 ML IV SCH (09:00)
[2021-08-20] MEDS: SODIUM CHLORIDE FLUSH 0.9% 10 ML SYRINGE IVP SCH ×3 (09:06→23:28)
--- NOTE | 2021-08-20 10:22 | PROVIDER PROGRESS NOTE ---
Assessment/Plan - Problem List (1) CAP (community acquired pneumonia) Qualifiers: Laterality: right Lung location: lower lobe of lung Qualified Code(s): J18.9 - Pneumonia, unspecified organism Assessment/Plan: 08/20 Improved, pt report he feel better. WBC is down to 14, blood culture is pending, we continue IV antibiotics on today. Covid 19 is negative. add Tessalon for cough PRN (2) respiratory failure with Hypoxia 08/20 improved. pt had 92% on room air now, improved from 86% O2 sat on room air at the admission. we continue IV antibiotics for CAP (3) Pleuritic chest pain Conclusion/Plan: . improved, pain is reduced. will continue Toradol PRN and resume home pain meds PRN. pleuritic pain is Likely rate related to pneumonia. troponin is neg ative. EKG has no schemic change. (4) Hyponatremia Conclusion/Plan: improved. Na 131 today, continue gently IVF (5) Hypertension Conclusion/Plan: On lisinopril 20 mg p.o. daily. Hydralazine 10 mg every 4 hours as needed for systolic blood pressure greater than 160. (6) DAVID on CPAP Conclusion/Plan: Noncompliant with home CPAP. - Current Meds Current Meds: Current Medications Generic Name Dose Route Start Last Admin Trade Name Freq PRN Reason Stop Dose Admin Enoxaparin Sodium 40 mg 08/20/21 09:00 08/20/21 08:11 Enoxaparin 40 Mg/0.4 Ml Syringe SUBQ 40 mg DAILY MANUEL Administration Sodium Chloride 1,000 mls @ 100 mls/hr 08/19/21 22:00 08/20/21 10:09 Normal Saline 0.9% IV 100 mls/hr .Q10H MANUEL Infusion Azithromycin 500 mg/ Sodium 250 mls @ 250 mls/hr 08/20/21 09:00 08/20/21 10:09 Chloride IV 08/21/21 09:59 Infused DAILY MANUEL Infusion Insulin Aspart 1 - 5 unit 08/20/21 08:00 08/20/21 07:54 Insulin Aspart 300 Unit/3 Ml Pen SUBQ Not Given 0800,1200,1700,2100 [facility] Protocol Ketorolac Tromethamine 15 mg 08/19/21 21:32 08/20/21 01:05 Ketorolac 15 Mg/Ml Vial IVP 08/24/21 21:31 15 mg Q6HR PRN Administration PAIN Saccharomyces Boulardii 250 mg 08/20/21 08:00 08/20/21 08:11 Saccharomyces Boulardii 250 Mg Capsule PO 250 mg BIDWM MANUEL Administration Sodium Chloride 10 ml 08/19/21 21:08 08/20/21 01:05 Sodium Chloride Flush 0.9% 10 Ml Syringe IVP 10 ml PRN PRN Administration NEEDED PER PROVIDER ORDERS Sodium Chloride 10 ml 08/20/21 01:00 08/20/21 09:06 Sodium Chloride Flush 0.9% 10 Ml Syringe IVP Not Given 0100,0900,1700 MANUEL - Lab Result Fish Bone Diagrams: 08/20/21 05:04 08/20/21 05:04 - Additional Planning My Orders: My Active Orders 08/20/21 05:04 HEMOGLOBIN A1c% [CHEM] Urgent 08/20/21 07:35 HYDROcodone/ACET 7.5/325 [[place] 7.5/325] 1 tab PO Q4HR PRN 08/20/21 08:00 Saccharomyces Boulardii [Florastor] 250 mg PO BIDWM 08/21/21 09:00 cefTRIAXone [Rocephin] 2 gm Sodium Chloride 0.9% Minibag [Normal Saline 0.9% Minibag] 100 ml IV DAILY Subjective - Subjective Patient Reports: Feeling Better, Resting Comfortably Objective Vital Signs: Vital Signs - 24 hr 08/19/21 08/19/21 08/19/21 18:30 20:52 20:58 Temperature 36.8 C Heart Rate 116 H 97 Heart Rate [ Brachial] Respiratory 22 18 Rate Blood Pressure 160/105 H 153/101 H Blood Pressure [Right Brachial artery] O2 Saturation 95 91 L 86 L 08/19/21 08/19/21 08/19/21 20:59 22:00 22:51 Temperature 36.4 C L Heart Rate 88 Heart Rate [ 90 Brachial] Respiratory 24 20 Rate Blood Pressure 139/72 H Blood Pressure 131/79 H [Right Brachial artery] O2 Saturation 94 95 95 08/20/21 08/20/21 08/20/21 04:00 07:49 08:00 Temperature 36.5 C 36.3 C L Heart Rate Heart Rate [ 92 92 Brachial] Respiratory 20 18 Rate Blood Pressure Blood Pressure 139/75 H 120/68 [Right Brachial artery] O2 Saturation 95 96 94 08/20/21 08/20/21 09:10 09:22 Temperature Heart Rate Heart Rate [ Brachial] Respiratory Rate Blood Pressure Blood Pressure [Right Brachial artery] O2 Saturation 93 92 Oxygen O2 Source Room air Oxygen Flow Rate 2 I&O (Last 24 Hrs): Intake and Output Totals x24h 08/18/21 08/19/21 08/20/21 23:59 23:59 23:59 Intake Total 1350 1750 Balance 1350 1750 General: Alert, Oriented x3, Cooperative, No acute distress HEENT: Atraumatic Neck: Supple Lymphatic: no adenopathy Neuro: Alert, Non Focal, Oriented Times 3 Cardiovascular: Regular rate, Normal S1, Normal S2 Respiratory: Chest non-tender, No respiratory distress Abdomen: Normal bowel sounds, Soft Extremities: Normal pulses - Results Results: Laboratory Results WBC 13.9 x10^3/uL (4.8-10.8) H 08/20/21 05:04 RBC 3.71 10^6/uL (4.70-6.10) L 08/20/21 05:04 Hgb 11.6 g/dL (14.0-18.0) L 08/20/21 05:04 Hct 34.1 % (42.0-52.0) L 08/20/21 05:04 MCV 91.9 fL (80.0-94.0) 08/20/21 05:04 MCH 31.3 pg (27.0-31.0) H 08/20/21 05:04 MCHC 34.0 g/dL (32.0-36.0) 08/20/21 05:04 RDW 17.2 % (12.0-15.0) H 08/20/21 05:04 Plt Count 179 10^3/uL (130-450) 08/20/21 05:04 MPV 10.2 fL (7.4-11.4) 08/20/21 05:04 Neut # (Auto) Not Reportable 08/20/21 05:04 Lymph # (Auto) Not Reportable 08/20/21 05:04 [place] # (Auto) Not Reportable 08/20/21 05:04 Eos # (Auto) Not Reportable 08/20/21 05:04 Baso # (Auto) Not Reportable 08/20/21 05:04 Absolute Nucleated RBC Not Reportable 08/20/21 05:04 Total Counted 100 08/20/21 05:04 Band Neuts % (Manual) 7 % (0-10) 08/20/21 05:04 Reactive Lymphs % (Man) 2 % 08/19/21 19:00 Abnorm Lymph % (Manual) 0 % 08/20/21 05:04 Metamyelocytes % 1 % (-0) H 08/20/21 05:04 Myelocytes % 1 % (-0) H 08/20/21 05:04 Nucleated RBC % Not Reportable 08/20/21 05:04 Neutrophils # (Manual) 10.1 10^3/uL (1.5-6.6) H 08/20/21 05:04 Lymphocytes # (Manual) 2.9 10^3/uL (1.5-3.5) 08/20/21 05:04 Monocytes # (Manual) 0.6 10^3/uL (0.0-1.0) 08/20/21 05:04 Eosinophils # (Manual) 0.0 10^3/uL (0-0.7) 08/20/21 05:04 Basophils # (Manual) 0.0 10^3/uL (0-0.1) 08/20/21 05:04 Nucleated RBCs 1 % 08/19/21 19:00 Differential Comment MANUAL DIFFERENTIAL 08/20/21 05:04 Platelet Estimate NORMAL (130-450,000) (NORMAL) 08/20/21 05:04 Platelet Morphology NORMAL APPEARANCE (NORMAL) 08/19/21 19:00 RBC Morph Micro Appear NORMAL APPEARANCE (NORMAL) 08/20/21 05:04 Sodium 131 mmol/L (135-145) L 08/20/21 05:04 Potassium 3.9 mmol/L (3.5-5.0) 08/20/21 05:04 Chloride 100 mmol/L (101-111) L 08/20/21 05:04 Carbon Dioxide 23 mmol/L (21-32) 08/20/21 05:04 Anion Gap 8.0 (6-13) 08/20/21 05:04 BUN 21 mg/dL (6-20) H 08/20/21 05:04 Creatinine 1.1 mg/dL (0.6-1.2) 08/20/21 05:04 Estimated GFR (MDRD) 69 (>89) L 08/20/21 05:04 Glucose 124 mg/dL (70-100) H 08/20/21 05:04 POC Whole Bld Glucose 89 mg/dL (70 - 100) 08/20/21 07:43 Lactic Acid 0.9 mmol/L (0.5-2.2) 08/19/21 20:05 Calcium 8.6 mg/dL (8.5-10.3) 08/20/21 05:04 Total Bilirubin 0.7 mg/dL (0.2-1.0) 08/19/21 19:00 AST 20 IU/L (10-42) 08/19/21 19:00 ALT 27 IU/L (10-60) 08/19/21 19:00 Alkaline Phosphatase 64 IU/L (42-121) 08/19/21 19:00 Troponin I High Sens 11.1 ng/L (2.3-19.7) 08/19/21 19:00 Total Protein 11.0 g/dL (6.7-8.2) H 08/19/21 19:00 Albumin 3.9 g/dL (3.2-5.5) 08/19/21 19:00 Globulin 7.1 g/dL (2.1-4.2) H 08/19/21 19:00 Albumin/Globulin Ratio 0.5 (1.0-2.2) L 08/19/21 19:00 Lipase 30 U/L (22-51) 08/19/21 19:00 Urine Color YELLOW 08/19/21 18:50 Urine Clarity HAZY (CLEAR) 08/19/21 18:50 Urine pH 5.5 PH (5.0-7.5) 08/19/21 18:50 Ur Specific [place] >=1.030 (1.002-1.030) H 08/19/21 18:50 Urine Protein 100 mg/dL (NEGATIVE) H 08/19/21 18:50 Urine Glucose (UA) NEGATIVE mg/dL (NEGATIVE) 08/19/21 18:50 Urine Ketones NEGATIVE mg/dL (NEGATIVE) 08/19/21 18:50 Urine Occult Blood SMALL (NEGATIVE) H 08/19/21 18:50 Urine Nitrite NEGATIVE (NEGATIVE) 08/19/21 18:50 Urine Bilirubin NEGATIVE (NEGATIVE) 08/19/21 18:50 Urine Urobilinogen 0.2 (NORMAL) E.U./dL (NORMAL) 08/19/21 18:50 Ur Leukocyte Esterase NEGATIVE (NEGATIVE) 08/19/21 18:50 Urine RBC 6-10 /HPF (0-5) H 08/19/21 18:50 Urine WBC 0-3 /HPF (0-3) 08/19/21 18:50 Ur Squamous Epith Cells FEW Squamous (<= Few) 08/19/21 18:50 Urine Bacteria None Seen /HPF (None Seen) 08/19/21 18:50 Ur Microscopic Review INDICATED 08/19/21 18:50 Urine Culture Comments NOT INDICATED 08/19/21 18:50 Nasal Adenovirus (PCR) NOT DETECTED 08/19/21 21:01 Nasal B. parapertussis DNA (PCR) NOT DETECTED 08/19/21 21:01 Nasal Coronavir 229E PCR NOT DETECTED 08/19/21 21:01 Nasal Coronavir HKU1 PCR NOT DETECTED 08/19/21 21:01 Nasal Coronavir NL63 PCR NOT DETECTED 08/19/21 21:01 Nasal Coronavir OC43 PCR NOT DETECTED 08/19/21 21:01 Nasal Enterovir/Rhinovir PCR NOT DETECTED 08/19/21 21:01 Nasal Influenza B PCR NOT DETECTED 08/19/21 21:01 Nasal Influenza A PCR NOT DETECTED 08/19/21 21:01 Nasal Parainfluen 1 PCR NOT DETECTED 08/19/21 21:01 Nasal Parainfluen 2 PCR NOT DETECTED 08/19/21 21:01 Nasal Parainfluen 3 PCR NOT DETECTED 08/19/21 21:01 Nasal Parainfluen 4 PCR NOT DETECTED 08/19/21 21:01 Nasal RSV (PCR) NOT DETECTED 08/19/21 21:01 Nasal B.pertussis DNA PCR NOT DETECTED 08/19/21 21:01 Nasal C.pneumoniae (PCR) NOT DETECTED 08/19/21 21:01 Rafat Human Metapneumo PCR NOT DETECTED 08/19/21 21:01 Nasal M.pneumoniae (PCR) NOT DETECTED 08/19/21 21:01 Nasal SARS-CoV-2 (PCR) NOT DETECTED 08/19/21 21:01 - Procedures Procedures: Procedures ANESTH INJEC PERIPH NERV (01/01/14) DESTRUC-SHOULDER LES NEC (11/17/12) OTH CHEST CAGE OSTECTOMY (01/01/14) ABX Reporting Has patient been on IV antibiotics over the past 48 hours?: Yes Current Medications - Current Medications Current Medications: Active Medications Acetaminophen (Acetaminophen 325 Mg Tablet) 650 mg PO Q4HR PRN PRN Reason: Pain 1 to 4 Hydrocodone Bitart/Acetaminophen (Hydrocod/Acetam 7.5 Mg/325 Mg Tablet) 1 tab PO Q4HR PRN PRN Reason: PAIN Benzonatate (Benzonatate 100 Mg Capsule) 100 mg PO TID PRN PRN Reason: Cough Enoxaparin Sodium (Enoxaparin 40 Mg/0.4 Ml Syringe) 40 mg SUBQ DAILY [facility] Last Admin: 08/20/21 08:11 Dose: 40 mg Hydralazine HCl (Hydralazine Inj 20 Mg/Ml Vial) 10 mg IVP Q4H PRN PRN Reason: PER PHYSICIAN ORDER Sodium Chloride (Normal Saline 0.9%) 1,000 mls @ 100 mls/hr IV .Q10H [facility] Stop: 08/20/21 17:59 Last Infusion: 08/20/21 10:09 Dose: 100 mls/hr Azithromycin 500 mg/ Sodium (Chloride) 250 mls @ 250 mls/hr IV DAILY [facility] Stop: 08/21/21 09:59 Last Infusion: 08/20/21 10:09 Dose: Infused Ceftriaxone Sodium 2 gm/ (Sodium Chloride) 100 mls @ 200 mls/hr IV DAILY [facility] Insulin Aspart (Insulin Aspart 300 Unit/3 Ml Pen) 1 - 5 unit SUBQ 0800,1200,1700,2100 [facility]; Protocol Last Admin: 08/20/21 07:54 Dose: Not Given Ketorolac Tromethamine (Ketorolac 15 Mg/Ml Vial) 15 mg IVP Q6HR PRN PRN Reason: PAIN Stop: 08/24/21 21:31 Last Admin: 08/20/21 01:05 Dose: 15 mg Ondansetron HCl (Ondansetron 4 Mg/2 Ml Vial) 4 mg IVP Q6HR PRN PRN Reason: Nausea / Vomiting Saccharomyces Boulardii (Saccharomyces Boulardii 250 Mg Capsule) 250 mg PO BIDWM [facility] Last Admin: 08/20/21 08:11 Dose: 250 mg Sodium Chloride (Sodium Chloride Flush 0.9% 10 Ml Syringe) 10 ml IVP PRN PRN PRN Reason: NEEDED PER PROVIDER ORDERS Last Admin: 08/20/21 01:05 Dose: 10 ml Sodium Chloride (Sodium Chloride Flush 0.9% 10 Ml Syringe) 10 ml IVP 0100,0900,1700 MANUEL Last Admin: 08/20/21 09:06 Dose: Not Given Atorvastatin [Lipitor] 10 mg PO QPM 08/20/21 Losartan [Cozaar] 100 mg PO DAILY 08/20/21 Metoprolol Succinate 100 mg PO DAILY 08/20/21 Spironolactone [Aldactone] 25 mg PO DAILY 08/20/21 metFORMIN [Glucophage] 500 mg PO BIDWM 08/20/21
[2021-08-20] MEDS ORDERED: BENZONATATE 100 MG CAPSULE PO PRN (10:24)
[2021-08-20] MEDS: SODIUM CHLORIDE 0.9% 1,000 ML IV SCH (10:42)
[2021-08-20 10:45] LABS: ESTIMATED AVERAGE GLUCOSE 148 mg/dL (70-100); HEMOGLOBIN A1c% 6.8 % (4.27-6.07)
[2021-08-20] MEDS ORDERED: SODIUM CHLORIDE 0.9% 1,000 ML IV SCH (11:00)
--- NOTE | 2021-08-20 18:30 | PHARMACY PROGRESS NOTE ---
- Best Possible Medication History Admit Date and Time: 08/19/212107 Processed by: Pharmacy Medication History completed: Yes Secondary Source(s): Insurance records As the person ultimately responsible for medication therapy, providers are able to order a medication from an existing home medication list in [facility] via the "Reconcile Routine" prior to Confirmation of that medication by technical support coordinator. Such practice is discouraged except when the physician, in their clinical judgment, deems that a medical need exists for a medication without regard to previous use.
[2021-08-21 05:10] LABS: BASOPHILS # (AUTO) 0.1 10^3/uL (0.0-0.1); BASOPHILS % (AUTO) 0.5 %; EOSINOPHILS # (AUTO) 0.1 10^3/uL (0.0-0.7); EOSINOPHILS % (AUTO) 1.2 %; HCT - HEMATOCRIT 33.7 % (42.0-52.0); HGB - HEMOGLOBIN 11.7 g/dL (14.0-18.0); LYMPHOCYTES # (AUTO) 3.6 10^3/uL (1.5-3.5); LYMPHOCYTES % (AUTO) 31.8 %; MEAN CORPUSCULAR HEMOGLOBIN 31.6 pg (27.0-31.0); MEAN CORPUSCULAR HGB CONC 34.7 g/dL (32.0-36.0); MEAN CORPUSCULAR VOLUME 91.1 fL (80.0-94.0); MEAN PLATELET VOLUME 9.9 fL (7.4-11.4); MONOCYTES # (AUTO) 1.4 10^3/uL (0.0-1.0); MONOCYTES % (AUTO) 12.5 %; NEUTROPHILS # (AUTO) 5.6 10^3/uL (1.5-6.6); NEUTROPHILS % (AUTO) 49.8 %; PLT - PLATELET COUNT 177 10^3/uL (130-450); WHITE BLOOD COUNT 11.2 x10^3/uL (4.8-10.8)
[2021-08-21 05:16] LABS: CALCIUM 8.4 mg/dL (8.5-10.3); CREATININE 0.9 mg/dL (0.6-1.2); POTASSIUM 3.9 mmol/L (3.5-5.0)
[2021-08-21] MEDS: INSULIN ASPART 300 UNIT/3 ML PEN SUBQ SCH (07:57)
[2021-08-21] MEDS: SACCHAROMYCES BOULARDII 250 MG CAPSULE PO SCH (08:19)
[2021-08-21] MEDS: ENOXAPARIN 40 MG/0.4 ML SYRINGE SUBQ SCH (08:19)
[2021-08-21] MEDS: SODIUM CHLORIDE FLUSH 0.9% 10 ML SYRINGE IVP SCH (08:20)
--- NOTE | 2021-08-21 08:31 | Discharge Plan ---
Discharge Plan Problem Reviewed?: Yes Disposition: Home, Self Care Condition: Stable Prescriptions: cefUROXime axetiL [Ceftin] 500 mg PO Q12H 5 Days #20 tablet Saccharomyces Boulardii [Florastor] 250 mg PO BIDWM #10 cap Diet: Diabetic Activity Restrictions: Activity as Tolerated Shower Restrictions: No (fall precaution) Instruction Topics: Cefuroxime tablets, Pneumonia Health Concerns: pneumonia Plan of Treatment: You were found to have pneumonia. After you were treated with antibiotics, your symptoms were resolved, and you have 98% O2 sats on room air. You are prescribed antibiotics to finish the treatment course. You may resume your home medications. Care Goals: Stabilization and improvement/resolved of your medical issue. Assessment: Discussed the care plan with you, answered your questions, you understood Additional Instructions or Follow Up instructions: You may follow-up with your PCP in 1 to 2 weeks, should your symptoms return or worse, you may present to the ER or call 911 for help No Smoking: If you smoke, Please STOP! Call for help. Follow-up with: Triny Francisco ARNP [Primary Care Provider] -
--- NOTE | 2021-08-21 08:36 | DISCHARGE SUMMARY ---
Discharge Summary Admit Date: 08/19/21 Discharge Date: 08/21/21 Discharging Provider: Padilla Lemos Primary Care Provider: Triny Snyder Code Status: Attempt Resuscitation Condition at Discharge: Stable Discharge Disposition: 01 Home, Self Care Discharge Facility Name: home - DIAGNOSES Discharge Diagnoses with Status of Each Condition: (1) CAP (community acquired pneumonia) significantly improved. pt has 95% O2 sat on room air. he walk without respiratory distress. pt is prescribed antibiotics to finish the treatment course. (2) respiratory failure with Hypoxia resolved. pt has 95% O2 sat on room air. he walk without respiratory distress. (3) Pleuritic chest pain resolved. no more pain (4) Hyponatremia Na is 133 today. (5) Hypertension stable, resume home meds (6) DAVID on CPAP stable, resume home CPAP - HPI History of Present Illness: refer from Dr Abbey Oreilly's HPI on 08/19/21 56-year-old male who presented to the ED with complaint of right sided pleuritic pain. He points to his ribs on the right side. Symptoms started 2 days ago. He denies any trauma or injury. He has a nonproductive cough. He denied chest pain, dyspnea, abdominal pain, nausea, vomiting, fever or chills. He was noted to have a white blood cell count of 17.2 in the ED. Further work-up included CT of the abdomen pelvis as well as chest. This showed right-sided consolidation. The patient had difficulties laying flat for the CT due to the pain. As a result he received a total of 2 mg of Dilaudid IV in the ED. He subsequently became hypoxic with oxygen dropping to 86%. He required 2 L of oxygen via nasal cannula to keep his oxygen at 94%. He was presented for admission for continued management. He was given a dose of Rocephin and azithromycin in the ED. He also received a bolus of normal saline in the ED. - ALLERGIES Allergies/Adverse Reactions: Allergies Allergy/AdvReac Type Severity Reaction Status Date / Time No Known Drug Allergies Allergy Verified 08/19/21 18:32 - MEDICATIONS Home Medications: Ambulatory Orders Medication Instructions Recorded Confirmed Atorvastatin [Lipitor] 10 mg PO QPM 08/20/21 08/20/21 Losartan [Cozaar] 100 mg PO DAILY 02/23/22 02/23/22 Metoprolol Succinate 100 mg PO DAILY 08/20/21 08/20/21 Spironolactone [Aldactone] 25 mg PO DAILY 08/20/21 08/20/21 metFORMIN [Glucophage] 500 mg PO BIDWM 08/20/21 08/20/21 Saccharomyces Boulardii [Florastor] 250 mg PO BIDWM #10 cap 08/21/21 cefUROXime axetiL [Ceftin] 500 mg PO Q12H 5 Days #20 tablet 08/21/21 - PHYSICAL EXAM AT DISCHARGE General Appearance: positive: No acute distress, Alert. negative: Lethargic Eyes Bilateral: positive: Normal inspection, No lid inflammation ENT: positive: ENT inspection nml, No signs of dehydration. negative: Purulent nasal drainage Neck: positive: Nml inspection, Trachea midline. negative: Tracheal deviation Respiratory: positive: Chest non-tender, No respiratory distress. negative: Wheezes, Rales Cardiovascular: positive: Regular rate & rhythm. negative: Tachycardia, Bradycardia, Systolic murmur Peripheral Pulses: positive: 2+ Abdomen: positive: Non-tender, Nml bowel sounds, No distention. negative: Tenderness Back: positive: Nml inspection Skin: positive: Color nml, Warm, Dry. negative: Cyanosis Extremities: positive: Non-tender, Full ROM, Nml appearance Neurologic/Psychiatric: positive: Oriented x3, Motor nml, Sensation nml, Mood/affect nml. negative: Weakness, Sensory loss, Facial droop, Slurred/abnml speech, Depressed mood/affect - LABS Result Diagrams: 08/21/21 04:58 08/21/21 04:58 - FOLLOW UP Follow Up: You were found to have pneumonia. After you were treated with antibiotics, your symptoms were resolved, and you have 98% O2 sats on room air. You are prescribed antibiotics to finish the treatment course. You may resume your home medications. You may follow-up with your PCP in 1 to 2 weeks, should your symptoms return or worse, you may present to the ER or call 911 for help - TIME SPENT Time Spent in Discharge (Minutes): 30
[2021-08-21] MEDS ORDERED: LOSARTAN 50 MG TABLET PO SCH ×2 (09:00)
[2021-08-21] MEDS ORDERED: SPIRONOLACTONE 25 MG TABLET PO SCH ×2 (09:00)
[2021-08-21] MEDS ORDERED: polyethylene glycoL 3350 17 GM PACKET PO SCH (09:00)
[2021-08-21] MEDS ORDERED: cefTRIAXone 2 GM in SODIUM CHLORIDE 0.9% MINIBAG 100 ML IV SCH (09:00)
[2021-08-21] MEDS ORDERED: METOPROLOL SUCCINATE 50 MG TABLET PO SCH (09:00)
[2021-08-21] MEDS: AZITHROMYCIN INJ 500 MG in SODIUM CHLORIDE 0.9% 250 ML IV SCH (09:10)
[2021-08-21 11:32] VITALS: BP 153/80
== END 2021-08-21 11:15 | disposition home or self-care (01) ==
LOC: ED 18:16 → MS2 21:08
PROVIDERS: ADMIT Internal Medicine; ATTEND Nurse Practitioner Gerontology
DX: J18.9 Pneumonia, unspecified organism (principal); J96.91 Respiratory failure, unspecified with hypoxia; D72.829 Elevated white blood cell count, unspecified; E78.00 Pure hypercholesterolemia, unspecified; E87.1 Hypo-osmolality and hyponatremia; I10 Essential (primary) hypertension; M19.90 Unspecified osteoarthritis, unspecified site; F17.200 Nicotine dependence, unspecified, uncomplicated; G47.33 Obstructive sleep apnea (adult) (pediatric); R00.0 Tachycardia, unspecified; Z20.822 Contact with and (suspected) exposure to COVID-19; Z79.899 Other long term (current) drug therapy
CPT/HCPCS: 0202U; 36415; 71045; 71260; 74177; 80048; 80053; 81001; 83036; 83605; 83690; 84484; 85025; 87040; 93005; 96365; 96366; 96367; 96372; 96375; 96376; 99284; 99285; A9270; G0378; J1170; J1650; Q9967; 81003; 87086

== ENCOUNTER 2021-11-23 15:56 | Emergency (ER) | payer OTHER ==
[2021-11-23 16:02] VITALS: BP 133/65
[2021-11-23] MEDS ORDERED: HYDROmorphone 1 MG/ML CARPUJECT IM STA ×2 (16:14→17:17)
--- NOTE | 2021-11-23 16:19 | ED Physician Documentation ---
History of Present Illness - Stated complaint Stated Complaint: BACK PX - Chief complaint Chief Complaint: Back Pain - Additonal information Additional information: 56-year-old male presents emergency department for evaluation of 1 month of low back pain. Denies any pre-existing falls or trauma. He states that intermittently but now with increased frequency he feels his low back seized up on him. It often literally will drop him to his knees. He states that taking a warm shower often helps relax the back pain. He is taken 400 mg of Motrin and or 500 mg of Tylenol with minimal relief. He has no radiation of the pain. No fevers. No saddle anesthesia. He is a diabetic but no history of injection drug use. No loss of bowel or bladder function Review of Systems Constitutional: denies: Fever, Chills Throat: reports: Reviewed and negative Cardiac: reports: Reviewed and negative Respiratory: reports: Reviewed and negative GI: reports: Reviewed and negative Skin: reports: Reviewed and negative Musculoskeletal: reports: Back pain Neurologic: reports: Reviewed and negative Psychiatric: reports: Reviewed and negative PD PAST MEDICAL HISTORY - Past Medical History Cardiovascular: Hypertension, High cholesterol Respiratory: Sleep apnea, CPAP use Endocrine/Autoimmune: None GI: None : None HEENT: None, Other Psych: None Musculoskeletal: Osteoarthritis, Other Derm: None - Past Surgical History Past Surgical History: Yes Ortho: Rotator cuff repair, Shoulder arthroplasty, Arthroscopic surgery, Other - Present Medications Home Medications: Ambulatory Orders Medication Instructions Recorded Confirmed Atorvastatin [Lipitor] 10 mg PO QPM 08/20/21 08/20/21 Losartan [Cozaar] 100 mg PO DAILY 08/20/21 08/20/21 Metoprolol Succinate 100 mg PO DAILY 08/20/21 08/20/21 Spironolactone [Aldactone] 25 mg PO DAILY 08/20/21 08/20/21 metFORMIN [Glucophage] 500 mg PO BIDWM 08/20/21 08/20/21 Saccharomyces Boulardii [Florastor] 250 mg PO BIDWM #10 cap 08/21/21 cefUROXime axetiL [Ceftin] 500 mg PO Q12H 5 Days #20 tablet 08/21/21 Ondansetron Odt [Zofran] 4 mg TL Q6H PRN #10 tablet 11/23/21 methocarbamoL [Methocarbamol] 750 mg PO BID PRN #15 tablet 11/23/21 oxyCODONE [Roxicodone] 5 mg PO TID PRN #20 tablet 11/23/21 - Allergies Allergies/Adverse Reactions: Allergies Allergy/AdvReac Type Severity Reaction Status Date / Time No Known Drug Allergies Allergy Verified 11/23/21 15:59 - Social History Does the pt smoke?: Yes Smoking Status: Current some day smoker Does the pt drink ETOH?: Yes Does the pt have substance abuse?: No - Immunizations Immunizations are current?: Yes - POLST Patient has POLST: No POLST Status: Full Code PD ED PE NORMAL - General General: Alert and oriented X 3, No acute distress - HEENT HEENT: Atraumatic, Moist mucous membranes - Neck Neck: Supple, no meningeal sign - Cardiac Cardiac: RRR, No murmur - Respiratory Respiratory: No respiratory distress - Abdomen Abdomen: Normal bowel sounds, Soft - Back Back: No CVA TTP. No: No spinal TTP (Mild lower midline lumbar tenderness to palpation. Negative straight leg bilaterally. Motor strength is 5 of 5. Very antalgic gait though unassisted. 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 Eye Opening: Spontaneous Motor: Obeys Commands Verbal: Oriented GCS Score: 15 - Psych Psych: Normal mood Results - Vitals Vitals: Vital Signs - 24 hr 11/23/21 15:59 Temperature 36.5 C Heart Rate 82 Respiratory 16 Rate Blood Pressure 133/65 H O2 Saturation 98 Oxygen O2 Source Room air - Labs Labs: Laboratory Tests 11/23/21 11/23/21 18:04 18:04 WBC 12.0 H RBC 3.91 L Hgb 12.0 L Hct 36.1 L MCV 92.3 MCH 30.7 MCHC 33.2 RDW 18.3 H Plt Count 238 MPV 9.5 Neut # (Auto) Not Reportable Lymph # (Auto) Not Reportable [place] # (Auto) Not Reportable Eos # (Auto) Not Reportable Baso # (Auto) Not Reportable Absolute Nucleated RBC Not Reportable Total Counted 100 Band Neuts % (Manual) 9 Abnorm Lymph % (Manual) 0 Metamyelocytes % 2 H Myelocytes % 2 H Nucleated RBC % Not Reportable Neutrophils # (Manual) 5.8 Lymphocytes # (Manual) 4.7 H Monocytes # (Manual) 0.6 Eosinophils # (Manual) 0.4 Basophils # (Manual) 0.1 Differential Comment MANUAL DIFFERENTIAL WBC Morphology NORMAL APPEARANCE Platelet Estimate NORMAL (130-450,000) Platelet Morphology NORMAL APPEARANCE RBC Morph Micro Appear 1+ ANISOCYTOSIS Sodium 134 L Potassium 3.9 Chloride 102 Carbon Dioxide 25 Anion Gap 7.0 BUN 23 H Creatinine 1.0 Estimated GFR (MDRD) 77 L Glucose 107 H Calcium 9.6 Total Bilirubin 0.3 AST 22 ALT 28 Alkaline Phosphatase 47 Total Protein 11.3 H Albumin 3.4 Globulin 7.9 H Albumin/Globulin Ratio 0.4 L Lipase 27 - Rads (name of study) Lumbar CT Radiology: Final report received (Diffuse bony metastatic disease until proven otherwise with a pathologic fracture seen on the L4 level. These abnormal findings have developed since the prior CT dated 08/19/2021) chest CT wo Radiology: Final report received (Throughout the bones numerous small lytic lesions are seen which are new compared to the CT in July 2021 and represent metastatic disease. No thoracic pathologic fracture seen. No clair primary masses seen. Within the right upper lobe there is a 4 mm nodule similar to prior exam.) CT abd wo Radiology: Final report received (Primary masses not identified to the limits of this noncontrast CT. Diffuse bony metastatic disease is seen with innumerable lytic lesions including an L4 focus with pathologic fracture.) PD MEDICAL DECISION MAKING - ED course Complexity details: reviewed old records, reviewed results, re-evaluated patient, considered differential, d/w patient, d/w family ED course: 56-year-old male presents emergency department for evaluation of midline severe low back pain that began about 1 Month ago. Denies any falls or trauma. With the exception of age he had no red flags. However he did have focal midline tenderness and pain out of proportion given history therefore a CT of his lumbar spine was completed. Unfortunately it did show a pathologic fracture at L4. Screening labs showed no acute worrisome findings. Unfortunately there is a national shortage of IV contrast therefore we did noncontrast CT imaging of the chest abdomen and pelvis. Unfortunately we could not find a primary source. Given the national shortage of IV contrast the patient may require MRI imaging for further evaluation. CT imaging findings were discussed with the patient his and his son at the bedside. A prescription for oxycodone will be sent to [facility] in [place]. He ambulates well using a walker and has a few walkers at home to use. Red flag and emergent return precautions were discussed otherwise patient will follow-up with primary care provider to obtain appropriate referral to hematology oncology as well as further imaging which may include MRI imaging to find a primary source. I am prescribing a short course of short-acting opioid pain medication for this patient. 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 I have discussed that the opioids are for short term therapy only, and will not be refilled from the ED. Departure - Departure Disposition: Home, Self Care Clinical Impression: Lumbar vertebral fracture, pathologic Qualifiers: Encounter type: initial encounter Qualified Code(s): M84.48XA - Pathological fracture, other site, initial encounter for fracture Condition: Stable Record reviewed to determine appropriate education?: Yes Prescriptions: methocarbamoL [Methocarbamol] 750 mg PO BID PRN #15 tablet PRN Reason: Spasms oxyCODONE [Roxicodone] 5 mg PO TID PRN #20 tablet PRN Reason: Pain Ondansetron Odt [Zofran] 4 mg TL Q6H PRN #10 tablet PRN Reason: Nausea / Vomiting Comments: Oren you are seen today in the emergency department for severe pain in your lower back. Unfortunately the CT imaging of your lumbar spine shows a pathologic fracture of your fourth lumbar vertebrae. This most likely means that you have a metastatic cancer. We did do CT imaging of the chest abdomen pelvis but did not find a primary source. Unfortunately due to the national shortage of IV contrast at this Was not the ideal imaging. Because were unable to give IV contrast your primary provider may need to consider outpatient MRI imaging to determine the source of your cancer. Your primary provider may also need to make a referral for you to hematology and oncology. I am sending a prescription for oxycodone to the pharmacy [facility] in [place]. I am also sent a prescription for some nausea and muscle relaxer medication. If at any point your back pain worsens, you develop numbness or tingling in your genital area, are unable to control your bowel or bladder function you must return immediately to the emergency department. I am prescribing a short course of narcotic pain medication for you. These are potentially dangerous and addictive medications that should be used carefully. These medications may constipate you. Take an owme-jxn-cqxwrsu stool softener (docusate) twice daily with plenty of water while taking these medications. If you go 24 hours without a bowel movement, take mhlj-jyh-rpsqrck miralax, per package instructions. Do not drink or drive while taking these medications. If you received narcotic or sedating medications while in the emergency department, do not drive for 24 hours. Store this medication in a safe, secure place and out of reach of children. It is a violation of federal law to give or sell this medication to another person or to use in a manner other than prescribed. The ED will not refill narcotic prescriptions, including prescriptions lost or stolen. To dispose of unwanted medications: 1. [facility] at [address] in [place] has a medication drop box. They accept prescription medications (in pill form) Wednesday through Wednesday 9:00 a.m. to 5:00 p.m. 2. The [facility] [employer] accepts prescription medications (in pill form only) for disposal year round. Call for more information. 3. Contact the [facility] for the next [facility] sponsored prescription drug collection event. , [phone], or [phone]; Note that many narcotic pain relievers also contain Tylenol/acetaminophen. Please ensure that your total dose of acetaminophen from all sources does not exceed 3 g (3000 mg) per day.
[2021-11-23] MEDS ORDERED: KETOROLAC 30 MG/ML VIAL IM STA (17:17)
--- NOTE | 2021-11-23 17:55 | CT Report ---
PROCEDURE: LUMBAR SPINE WO INDICATIONS: low back pain X 1 months TECHNIQUE: Noncontrast 3 mm thick sections acquired from the T12 level to the sacrum. Sagittal and coronal refo rmats were constructed. For radiation dose reduction, the following was used: automated exposure co ntrol, adjustment of mA and/or kV according to patient size. COMPARISON: Correlation is made with the prior abdomen pelvis CT, 08/19/2021 FINDINGS: Image quality: Excellent. Bones: The bones demonstrate a diffusely mottled appearance, with notable lytic lesions. The most pr ominent of these lytic lesions can be seen within the anterior aspect of L4, with a pathologic fractu re involving the anterior-inferior aspect of this vertebral body, with 30% loss of height. This can b e seen on series 6 image 25 and on series 7 image 35. No acute vertebral body compression fractures. Central spinal caliber is of normal overall caliber. Bilateral L5 pars defects can be seen, with minimal L5-S1 anterolisthesis. T12-L1: The disc height is relatively well preserved. Mild disc bulge is seen. There is mild to mo derate right-sided and mild left-sided neuroforaminal narrowing. No significant central canal narrowi ng is seen. L1-L2: The disc height is well-preserved. Mild to moderate bilateral neuroforaminal narrowing is s een. No significant central canal narrowing is seen. L2-L3: The disc height is well-preserved. Mild disc bulge is seen. There is mild left-sided and minimal right-sided neuroforaminal narrowing. Mild central canal narrowing is seen. L3-L4: Mild loss of disc height is seen. Mild to moderate disc bulge is seen. Mild facet hypertrop hy is seen. Mild bilateral neural foraminal narrowing is seen. Mild to moderate central canal narr owing is seen. L4-L5: The disc height is relatively well preserved. Mild to moderate disc bulge is seen. Moderate facet hypertrophy is seen. There is moderate right-sided and no minimal left-sided neuroforaminal n arrowing. No significant central canal narrowing is seen. No significant neural foraminal or central canal narrowing can be seen. L5-S1: The disc height is well-preserved. No significant disc bulge is seen. Mild facet hypertroph y is seen. Minimal foraminal narrowing can be seen. The central canal is widely patent. Soft tissues: No retroperitoneal masses or hematomas. Visualized aorta is normal in caliber. Ather osclerotic calcification is seen. A normal appendix is incidentally noted. Diffuse fatty liver infil tration can be seen. IMPRESSION: Diffuse bony metastatic disease until proven otherwise, with a pathologic fracture seen of the L4 lev el. These abnormal findings have developed since the recent prior CT dated 08/19/2021. Multiple levels of mild to moderate age-appropriate degenerative changes are seen. Bilateral L5 pars defects, with minimal L5-S1 anterolisthesis. On these images, a primary neoplasm is not seen. Note: Case discussed by telephone with Lisa Tabor at 4:51 PM [place] time on 11/23/2021. Reviewed by: Nimesh Timmons MD on 11/23/2021 4:53 PM MARJORIE Approved by: Nimesh Timmons MD on 11/23/2021 4:53 PM MARJORIE Station ID: [id number]
[2021-11-23 18:12] LABS: BASOPHILS % (AUTO) 0.7 %; EOSINOPHILS % (AUTO) 1.4 %; HCT - HEMATOCRIT 36.1 % (42.0-52.0); LYMPHOCYTES % (AUTO) 39.2 %; MEAN CORPUSCULAR HEMOGLOBIN 30.7 pg (27.0-31.0); MEAN CORPUSCULAR HGB CONC 33.2 g/dL (32.0-36.0); MEAN CORPUSCULAR VOLUME 92.3 fL (80.0-94.0); MEAN PLATELET VOLUME 9.5 fL (7.4-11.4); MONOCYTES % (AUTO) 10.3 %; NEUTROPHILS % (AUTO) 38.8 %; PLT - PLATELET COUNT 238 10^3/uL (130-450); RED BLOOD COUNT 3.91 10^6/uL (4.70-6.10); RED CELL DISTRIBUTION WIDTH 18.3 % (12.0-15.0)
[2021-11-23 18:15] LABS: ABNORMAL LYMPHS % (MANUAL) 0 %
[2021-11-23 18:22] LABS: ALBUMIN 3.4 g/dL (3.2-5.5); ALBUMIN/GLOBULIN RATIO 0.4 (1.0-2.2); BILIRUBIN,TOTAL 0.3 mg/dL (0.2-1.0); CALCIUM 9.6 mg/dL (8.5-10.3); POTASSIUM 3.9 mmol/L (3.5-5.0); TOTAL PROTEIN 11.3 g/dL (6.7-8.2)
[2021-11-23 18:41] LABS: BAND NEUTROPHILS % (MANUAL) 9 %; BASOPHILS # (MANUAL) 0.1 10^3/uL (0-0.1); BASOPHILS % (MANUAL) 1 %; EOSINOPHILS # (MANUAL) 0.4 10^3/uL (0-0.7); LYMPHOCYTES # (MANUAL) 4.7 10^3/uL (1.5-3.5); LYMPHOCYTES % (MANUAL) 39 %; METAMYELOCYTES % (MANUAL) 2 %; MONOCYTES # (MANUAL) 0.6 10^3/uL (0.0-1.0); MYELOCYTES % (MANUAL) 2 %; NEUTROPHILS # (MANUAL) 5.8 10^3/uL (1.5-6.6)
[2021-11-23 18:42] LABS: PLATELET ESTIMATE, MANUAL NORMAL (130-450,000) (NORMAL); PLATELET MORPHOLOGY NORMAL APPEARANCE (NORMAL); RBC MORPHOLOGY (MULTIPLE) 1+ ANISOCYTOSIS (NORMAL); WBC MORPHOLOGY (MULTIPLE) NORMAL APPEARANCE (NORMAL)
[2021-11-23 18:43] LABS: DIFFERENTIAL COMMENT MANUAL DIFFERENTIAL
--- NOTE | 2021-11-23 18:44 | CT Report ---
PROCEDURE: CHEST WO INDICATIONS: ? mets TECHNIQUE: Noncontrast 1mm axial images were acquired from the pulmonary apices to the posterior costophrenic an gles. Axial 5 mm soft tissue kernel reconstructions were performed as well as 8 mm axial MIP and cor onal and sagittal 5 mm reformations. For radiation dose reduction, the following was used: automate d exposure control, adjustment of mA and/or kV according to patient size. COMPARISON: Prior chest CT, 09/16/2021. Correlation is made with the accompanying abdomen pelvis CT a s well as the lumbar spine CT, 11/23/2021. FINDINGS: Image quality: Excellent. Lungs and pleura: Within the right upper lobe, there is a focal nodule seen, as on series 2 image 97 measuring 4 to 5 mm. This is similar to the prior CT. Within the right middle lobe laterally, there is a subpleural soft tissue nodule seen, as on series 3 image 194 measuring 5 mm, which is also similar to the prior CT. Within the right upper lobe anteriorly, there is a calcified granuloma seen, as on series 3 image 71. Mild dependent atelectasis is seen. No pleural effusions or pneumothorax. Central and peripheral air ways are patent and normal in caliber. Mediastinum: Heart size is normal. No pericardial effusion. Moderate coronary artery calcification is seen. No mediastinal adenopathy by size criteria. Thoracic aorta and central pulmonary arteries a re normal in size. Esophagus is normal in caliber. No hiatal hernia. Bones and chest wall: The bones are diffusely abnormal, with a mottled appearance, with numerous smal l lytic lesions. Benign bone islands can be seen involving the left humeral head and the left glenoid , as on series 3 image 17. No vertebral body compression fractures. No axillary or supraclavicular a denopathy by size criteria. The thyroid is normal in size and there are no incidental findings. Abdomen: (Please see the accompanying abdomen pelvis CT report for discussion of the abdominal findin g.) IMPRESSION: Throughout the bones, numerous small lytic lesions are seen, which are new compared to t he prior chest CT dated 08/19/2021 and represent metastatic disease until proven otherwise. No thoracic pathologic fractures are seen. No clair primary masses can be seen. Within the right upper lobe, there is a 4 to 5 mm nodule which is similar to the prior examination. M etastatic disease is possible, yet considered to be less likely. Additionally, a calcified granuloma and a likely subpleural lymph node can be seen. Incidental note is made of: Bone islands Mild dependent atelectasis Reviewed by: Nimesh Timmons MD on 11/23/2021 5:42 PM AKDT Approved by: Nimesh Timmons MD on 11/23/2021 5:42 PM MARJORIE Station ID: [id number]
--- NOTE | 2021-11-23 18:48 | CT Report ---
PROCEDURE: Abdomen/Pelvis WO INDICATIONS: ? source of mets for L4 patholoc frature TECHNIQUE: Noncontrast 5 mm thick sections acquired from the diaphragms to the symphysis. 5 mm coronal and sagi ttal reformats were then performed. For radiation dose reduction, the following was used: automated exposure control, adjustment of mA and/or kV according to patient size. COMPARISON: Abdomen pelvis CT, 08/19/2021. Correlation is also made with the accompanying lumbar spin e CT and chest CT, 11/14/2021. FINDINGS: Image quality: Excellent. ABDOMEN: Lung bases: Lung bases are clear. Heart size is normal. Solid organs: An enlarged, diffusely fatty infiltrated liver can be seen. No focal liver lesions are seen to the limits of this noncontrast study. The spleen demonstrates normal size and demonstrates n o suspicious lesions. Gallbladder wall does not appear thickened. Pancreas is normal in contours. No adrenal nodules. Kidneys are normal in size, without hydronephrosis or nephrolithiasis. Along the posterior aspect of the left kidney, there is a water density cyst again seen that measures approximately 2 cm. Peritoneum and bowel: Unenhanced bowel loops demonstrate normal wall thickness and caliber. No free fluid or air. A normal appendix is incidentally noted. Nodes and vessels: No retroperitoneal or mesenteric adenopathy by size criteria. Aorta and inferior vena cava are normal in caliber. Miscellaneous: No ventral hernias. PELVIS: Genitourinary: Bladder wall thickness is normal. Miscellaneous: No inguinal hernias or adenopathy. Bones: The bones demonstrate a diffusely mottled appearance, with innumerable small lytic lesions. W ithin the L4 level, there is a lytic lesion seen anteriorly, with an associated pathologic fracture, with 30% loss of height. This is new compared to the prior CT. IMPRESSION: A primary mass is not identified to the limits of this noncontrast CT. Diffuse bony metastatic disease can be seen with with innumerable lytic lesions, including an L4 lyti c focus with a pathologic fracture. These bony findings are new compared to the prior CT. No enlarged lymph nodes are seen. Incidental note is made of: Enlarged, fatty liver Simple appearing, water density left renal cyst Normal appendix Reviewed by: Nimesh Timmons MD on 11/23/2021 5:47 PM AKDT Approved by: Nimesh Timmons MD on 11/23/2021 5:47 PM MARJORIE Station ID: [id number]
[2021-11-23] MEDS ORDERED: oxyCODONE/ACET 5/325 Prepack 4 PO STA (19:20)
== END 2021-11-23 19:35 | disposition home or self-care (01) ==
LOC: ED 15:56
DX: M84.48XA Pathological fracture, other site, initial encounter for fracture (principal); F17.200 Nicotine dependence, unspecified, uncomplicated
CPT/HCPCS: 36415; 71250; 72131; 74176; 80053; 83690; 85025; 96372; 99284; J1170

== ENCOUNTER 2023-03-05 21:15 | Emergency (ER) | payer OTHER ==
[2023-03-05 21:27] VITALS: BP 160/90; O2SAT 96
[2023-03-05] MEDS ORDERED: HYDROmorphone 1 MG/ML CARPUJECT IM STA (21:28)
--- NOTE | 2023-03-05 21:29 | ED Physician Documentation ---
PD HPI LOWER EXT INJURY - Stated complaint Stated Complaint: RT KNEE PX - Chief complaint Chief Complaint: Ext Problem - History obtained from History obtained from: Patient (57-year-old gentleman with history of stem cell transplant 1 year ago for multiple myeloma had his fairly large dog run into the back of his leg yesterday and now has severe knee pain and cannot walk because of it. No other injuries.) PD PAST MEDICAL HISTORY - Past Medical History Cardiovascular: Hypertension, High cholesterol Respiratory: Sleep apnea, CPAP use Endocrine/Autoimmune: None GI: None : None HEENT: None, Other Psych: None Musculoskeletal: Osteoarthritis, Other Derm: None - Past Surgical History Past Surgical History: Yes Ortho: Rotator cuff repair, Shoulder arthroplasty, Arthroscopic surgery, Other - Present Medications Home Medications: Ambulatory Orders Medication Instructions Recorded Confirmed Atorvastatin [Lipitor] 10 mg PO QPM 08/20/21 08/20/21 Losartan [Cozaar] 100 mg PO DAILY 08/20/21 08/20/21 Metoprolol Succinate 100 mg PO DAILY 08/20/21 08/20/21 Spironolactone [Aldactone] 25 mg PO DAILY 08/20/21 08/20/21 metFORMIN [Glucophage] 500 mg PO BIDWM 08/20/21 08/20/21 Saccharomyces Boulardii [Florastor] 250 mg PO BIDWM #10 cap 08/21/21 cefUROXime axetiL [Ceftin] 500 mg PO Q12H 5 Days #20 tablet 08/21/21 Ondansetron Odt [Zofran] 4 mg TL Q6H PRN #10 tablet 11/23/21 methocarbamoL [Methocarbamol] 750 mg PO BID PRN #15 tablet 11/23/21 oxyCODONE [Roxicodone] 5 mg PO TID PRN #20 tablet 11/23/21 - Allergies Allergies/Adverse Reactions: Allergies Allergy/AdvReac Type Severity Reaction Status Date / Time No Known Drug Allergies Allergy Verified 03/05/23 21:20 - Social History Does the pt smoke?: Yes Smoking Status: Current some day smoker Does the pt drink ETOH?: Yes Does the pt have substance abuse?: No - Immunizations Immunizations are current?: Yes - POLST Patient has POLST: No POLST Status: Full Code PD ED PE NORMAL - Vitals Vital signs reviewed: Yes - General General: Alert and oriented X 3, Other (He is unable to stand up unassisted due to pain, he is mildly uncomfortable at rest.) - Extremities Extremities: Other (Large effusion of the right knee joint. severely tender over the medial joint line. I am unable to check ligamentous testing due to lack of range of motion and significant pain. No deformity.) - Neuro Neuro: Alert and oriented X 3, Normal speech Results - Vitals Vitals: Vital Signs - 24 hr 03/05/23 21:20 Temperature 36.5 C Heart Rate 95 Respiratory 20 Rate Blood Pressure 160/90 H O2 Saturation 96 Oxygen O2 Source Room air - Rads (name of study) 4 view right knee x-ray showing mild to moderate joint effusion and degenerative changes worsening Relevant Findings:: Final report received, EMP independent interpretation of test PD Medical Decision Making - ED course ED course: Given the exam I am worried that he has an injury of the MCL. He is placed in a knee immobilizer after 2 mg of IM Dilaudid. States he has plenty of oxycodone at home for pain control. Discussed need for follow-up with Ortho. Departure - Departure Disposition: Home, Self Care Clinical Impression: Traumatic rupture of medial collateral ligament of knee Record reviewed to determine appropriate education?: Yes Instructions: ED Sprain Knee Collateral Ligaments Follow-Up: [facility] [Provider Group] Comments: As discussed, your exam is concerning for an MCL strain or tear in your right knee. Follow-up with our orthopedic surgeons, call Wednesday for an appointment. They may want to perform further evaluation or treatment. Return for new or worsening symptoms. You can use the oxycodone you have at home for pain control per the prescription instructions. Forms: PCP List
[2023-03-05] MEDS ORDERED: oxyCODONE/ACET 5/325 Prepack 4 PO STA (21:52)
--- NOTE | 2023-03-05 22:01 | XRAY Report ---
PROCEDURE: Knee 4 View RT INDICATIONS: knee inj TECHNIQUE: 4 views of the right knee(s) were acquired. COMPARISON: 01/20/2019 FINDINGS: Bones: No fractures or dislocations. No suspicious bony lesions. There is an enthesophyte seen thuan g the superior aspect of the patella. On the sunrise view, there is mild osteophyte formation seen al mehdi the margins of the patella. There is moderate medial femorotibial joint space narrowing, with associated degenerative change with subchondral sclerosis and osteophyte formation. Soft tissues: There is a mild to moderate knee joint effusion. Calcification can be seen along the j oint lines, which is attributed to meniscal calcification. IMPRESSION: Mild to moderate joint effusion. No acute bony abnormality is seen on these plain film images. Degenerative changes are seen, which are worst involving the medial femoral tibial compartment. The d egenerative changes are progressed compared to 2019. If it would be helpful for clinical management decision making, please consider a dedicated, schedule d knee MRI for further evaluation (assuming that there is no contraindication). Reviewed by: Nimesh Timmons MD on 03/05/2023 9:00 PM MARJORIE Approved by: Nimesh Timmons MD on 03/05/2023 9:00 PM MARJORIE Station ID: [id number]
== END 2023-03-05 22:39 | disposition home or self-care (01) ==
LOC: ED 21:15
DX: S83.411A Sprain of medial collateral ligament of right knee, initial encounter (principal); W54.1XXA Struck by dog, initial encounter; I10 Essential (primary) hypertension; E78.00 Pure hypercholesterolemia, unspecified; F17.200 Nicotine dependence, unspecified, uncomplicated; Z79.899 Other long term (current) drug therapy; Z79.84 Long term (current) use of oral hypoglycemic drugs
CPT/HCPCS: 73564; 96372; 99283; 99284; J1170

== ENCOUNTER 2024-02-06 11:32 | Emergency (ER) | payer OTHER ==
--- NOTE | 2024-02-06 12:14 | ED Physician Documentation ---
History of Present Illness - Stated complaint Stated Complaint: SINUS PRESS,CORTEZ,RUNNY EYES - Chief complaint Chief Complaint: General - History obtained from History obtained from: Patient - History of Present Illness Timing: Prior to arrival - Additonal information Additional information: Patient is a 58-year-old male presenting to the emergency department with sinus pressure and coughing symptoms with erythema to bilateral eyes and crusting around his eyelashes. His symptoms have been going on for the past few days. He denies any recent sick contacts. He denies any shortness of breath or wheezing. Patient has past medical history remarkable for multiple myeloma. He is still taking oral chemotherapy medications but cannot recall the name. He denies any sore throat runny nose. He notes no urinary symptoms. No abdominal pain nausea or vomiting symptoms. He notes about 1 month ago he was diagnosed with COVID and developed pneumonia shortly after. He finished the antibiotics and is feeling significantly better until a few days ago. He has not seen anyone else for the symptoms. PD PAST MEDICAL HISTORY - Past Medical History Past Medical History: Yes Cardiovascular: Hypertension, High cholesterol, Atrial fibrillation Respiratory: Sleep apnea, CPAP use Neuro: Migraines, Peripheral neuropathy Endocrine/Autoimmune: Type 2 diabetes GI: None : None HEENT: Other Psych: None Musculoskeletal: Osteoarthritis, Other Derm: None Other Past Medical History: multiple myaloma - Past Surgical History Past Surgical History: Yes Ortho: Rotator cuff repair, Shoulder arthroplasty, Arthroscopic surgery, Other - Present Medications Home Medications: Ambulatory Orders Medication Instructions Recorded Confirmed Atorvastatin [Lipitor] 10 mg PO QPM 08/20/21 02/06/24 Losartan [Cozaar] 100 mg PO DAILY 08/20/21 02/06/24 Metoprolol Succinate 100 mg PO BID 08/20/21 02/06/24 metFORMIN [Glucophage] 1,000 mg PO BIDWM 08/20/21 02/06/24 oxyCODONE [Roxicodone] 5 mg PO TID PRN #20 tablet 11/23/21 02/06/24 Acetaminophen [Tylenol] 650 mg PO Q6H PRN #30 tab 02/06/24 Albuterol Sulf [Ventolin Hfa 1 - 2 puffs INH Q4HR PRN #1 each 02/06/24 Inhaler] Apixaban [Eliquis] 5 mg ORAL BID 02/06/24 02/06/24 Azithromycin [Zithromax] 1 tab PO DAILY #4 tab 02/06/24 Cholestyramine/Aspartame 1 applic PO DAILY 02/06/24 02/06/24 [Cholestyramine Light Powder] Erythromycin Base [Erythromycin 1 appful OP 5XD 7 Days #1 gm 02/06/24 Ophthalmic Ointment] Lenalidomide 10 mg ORAL DAILY 02/06/24 02/06/24 Pregabalin 100 mg PO BID 02/06/24 02/06/24 - Allergies Allergies/Adverse Reactions: Allergies Allergy/AdvReac Type Severity Reaction Status Date / Time No Known Drug Allergies Allergy Verified 02/06/24 11:40 - Social History Does the pt smoke?: No Smoking Status: Former smoker Does the pt drink ETOH?: No Does the pt have substance abuse?: No - Immunizations Immunizations are current?: No Immunizations: Other immun not current - POLST Patient has POLST: No POLST Status: Full Code PD ED PE NORMAL - Vitals Vital signs reviewed: Yes - General General: Alert and oriented X 3, No acute distress - HEENT HEENT: Atraumatic, Other (Bilateral conjunctival erythema with crusting to the eyelids. Pupils are equal round reactive to light and accommodation. No significant bulging or periorbital swelling around the eyes. Extraocular muscles intact with no pain on movement. visual acuity intact) - Neck Neck: Supple, no meningeal sign, C-Spine cleared by NEXUS criteria - Cardiac Cardiac: RRR, No gallop, No rub, Strong equal pulses - Respiratory Respiratory: No respiratory distress, Other (Decreased inspiratory and expiratory range on examination. No significant wheezing.) - Abdomen Abdomen: Normal bowel sounds - Back Back: No CVA TTP - Derm Derm: Normal color, No rash - Neuro Neuro: Alert and oriented X 3 - Psych Psych: Normal mood, Normal affect Results - Vitals Vitals: Vital Signs - 24 hr 02/06/24 02/06/24 11:40 13:17 Temperature 36.8 C Heart Rate 92 78 Respiratory 20 17 Rate Blood Pressure 154/86 H O2 Saturation 95 Oxygen O2 Source Room air - Labs Labs: Laboratory Tests 02/06/24 02/06/24 02/06/24 12:15 16:28 16:28 WBC 5.7 RBC 4.97 Hgb 14.8 Hct 43.9 MCV 88.3 MCH 29.8 MCHC 33.7 RDW 14.9 Plt Count 237 MPV 10.2 Neut # (Auto) Not Reportable Lymph # (Auto) Not Reportable [place] # (Auto) Not Reportable Eos # (Auto) Not Reportable Baso # (Auto) Not Reportable Absolute Nucleated RBC Not Reportable Total Counted 100 Band Neuts % (Manual) 9 Abnorm Lymph % (Manual) 0 Metamyelocytes % 4 H Nucleated RBC % Not Reportable Neutrophils # (Manual) 2.5 Lymphocytes # (Manual) 1.3 L Monocytes # (Manual) 1.6 H Eosinophils # (Manual) 0.1 Basophils # (Manual) 0.0 Differential Comment MANUAL DIFFERENTIAL Platelet Estimate NORMAL (130-450,000) Platelet Morphology NORMAL APPEARANCE RBC Morph Micro Appear NORMAL APPEARANCE Sodium 130 L Potassium 4.0 Chloride 97 L Carbon Dioxide 20 L Anion Gap 13.0 BUN 12 Creatinine 0.8 Estimated GFR (MDRD) 99 Glucose 320 H Calcium 9.5 Total Bilirubin 0.5 AST 13 ALT 15 Alkaline Phosphatase 54 Total Protein 7.0 Albumin 3.9 Globulin 3.1 Albumin/Globulin Ratio 1.3 Nasal Adenovirus (PCR) NOT DETECTED Nasal B. parapertussis DNA (PCR) NOT DETECTED Nasal Coronavir 229E PCR NOT DETECTED Nasal Coronavir HKU1 PCR NOT DETECTED Nasal Coronavir NL63 PCR NOT DETECTED Nasal Coronavir OC43 PCR NOT DETECTED Nasal Enterovir/Rhinovir PCR NOT DETECTED Nasal Influenza B PCR NOT DETECTED Nasal Influenza A PCR NOT DETECTED Nasal Parainfluen 1 PCR NOT DETECTED Nasal Parainfluen 2 PCR NOT DETECTED Nasal Parainfluen 3 PCR NOT DETECTED Nasal Parainfluen 4 PCR NOT DETECTED Nasal RSV (PCR) NOT DETECTED Nasal B.pertussis DNA PCR NOT DETECTED Nasal C.pneumoniae (PCR) NOT DETECTED Rafat Human Metapneumo PCR NOT DETECTED Nasal M.pneumoniae (PCR) NOT DETECTED Nasal SARS-CoV-2 (PCR) NOT DETECTED - Rads (name of study) chest x-ray Relevant Findings:: EMP independent interpretation of test (No acute cardiopulmonary findings) PD Medical Decision Making - ED course Complexity details: reviewed old records, reviewed results ED course: Patient is a 58-year-old male presenting to the emergency department with cough congestion and bilateral erythema to both eyes. Symptoms have been going on for a few days. Patient has past medical history remarkable for atrial fibrillation on Eliquis, history of multiple myeloma in remission and hypertension. Patient notes symptoms have been persistent for the past few days. He notes he recently recovered from pneumonia symptoms after being diagnosed with COVID-pneumonia about a month ago.Vitals here in the emergency department are reassuring patient is afebrile nontachycardic normotensive blood pressure and saturating on room air 96%. Physical exam shows no appreciable wheezing bilateral diminished breath sounds on auscultation however. Erythema noted to both eyes but crusting noted around eyelids. No significant periorbital swelling and extraocular muscles are intact. No significant bulging of the eyes or protrusion appreciated. Pupils are equal round reactive to light and accommodation. Gross visual acuity intact. Patient given DuoNeb treatment here in emergency department feeling significantly better. Patient chest x-ray showed no acute cardiopulmonary findings no acute findings of pneumonia. Labs obtained here to ensure no signs of neutropenia and is reassuring. Patient remains afebrile here in the emergency department and given reassuring workup will discharge patient home on oral antibiotics Given persistent sinus congestion symptoms. Patient given erythromycin ointment here in the emergency department and these seemed to help with the pruritus and irritation to both eyes.Discussed with patient he can take Tylenol and ibuprofen at home for his symptoms and should follow-up in outpatient setting with his PCP later this week to ensure resolution of symptoms. Will send refill of his albuterol inhaler at home as well. Departure - Departure Disposition: 01 Home, Self Care Clinical Impression: Acute conjunctivitis, bilateral, Hyperglycemia due to type 2 diabetes mellitus, Sinus congestion Condition: Good Instructions: ED Hyperglycemia Diabetic Prescriptions: Albuterol Sulf [Ventolin Hfa Inhaler] 1 - 2 puffs INH Q4HR PRN #1 each PRN Reason: Shortness Of Air/Wheezing Erythromycin Base [Erythromycin Ophthalmic Ointment] 1 appful OP 5XD 7 Days #1 gm Acetaminophen [Tylenol] 650 mg PO Q6H PRN #30 tab PRN Reason: Pain Azithromycin [Zithromax] 1 tab PO DAILY #4 tab Comments: Your labs are reassuring today your blood sugar is slightly elevated however this could be secondary to your congestion and cough recently have a recheck with your primary care doctor on blood sugar levels and be reevaluated in about 1 week to ensure congestion and cough resolves. If you develop any vision changes loss of vision or pain with movement of your eyes return to the emergency department. Forms: PCP List
[2024-02-06] MEDS: ACETAMINOPHEN 500 MG TABLET PO STA (12:19)
[2024-02-06] MEDS: IPRATROPIUM/ALBUTEROL 3 ML NEB INH STA (13:07)
[2024-02-06 13:17] LABS: B. PARAPERTUSSIS- RESP PCR PAN NOT DETECTED; B. PERTUSSIS- RESP PCR PANEL NOT DETECTED; C. PNEUMONIAE- RESP PCR PANEL NOT DETECTED; CORONAVIRUS 229E-RESP PCR NOT DETECTED; CORONAVIRUS HKU1-RESP PCR NOT DETECTED; CORONAVIRUS NL63-RESP PCR NOT DETECTED; CORONAVIRUS OC43-RESP PCR NOT DETECTED; HUMAN METAPNEUMOVIRUS NOT DETECTED; INFLUENZA A- RESP PCR PANEL NOT DETECTED; INFLUENZA B - RESP PCR PANEL NOT DETECTED; M. PNEUMONIAE- RESP PCR PANEL NOT DETECTED; PARAINFLUENZA VIRUS 1 NOT DETECTED; PARAINFLUENZA VIRUS 2 NOT DETECTED; PARAINFLUENZA VIRUS 3 NOT DETECTED; PARAINFLUENZA VIRUS 4 NOT DETECTED; RHINOVIRUS/ENTEROVIRUS NOT DETECTED; RSV- RESP PCR PANEL NOT DETECTED; SARS-CoV-2 -RESP PCR PANEL NOT DETECTED
--- NOTE | 2024-02-06 15:24 | XRAY Report ---
PROCEDURE: Chest 1V INDICATIONS: cough, sob TECHNIQUE: One view of the chest was acquired. COMPARISON: None. FINDINGS: Surgical changes and devices: None. Lungs and pleura: No pleural effusions or pneumothorax. Lungs are clear. Mediastinum: Mediastinal contours appear normal. Heart size is normal. Bones and chest wall: No suspicious bony lesions. Overlying soft tissues appear unremarkable. IMPRESSION: No acute cardiopulmonary process. Reviewed by: Jacki Bird MD on 02/06/2024 2:23 PM AKDT Approved by: Jacki Bird MD on 02/06/2024 2:23 PM AKDT Station ID: [id number]
[2024-02-06 16:31] LABS: BASOPHILS % (AUTO) 2.1 %; EOSINOPHILS % (AUTO) 3.2 %; HCT - HEMATOCRIT 43.9 % (42.0-52.0); HGB - HEMOGLOBIN 14.8 g/dL (14.0-18.0); LYMPHOCYTES % (AUTO) 28.8 %; MEAN CORPUSCULAR HEMOGLOBIN 29.8 pg (27.0-31.0); MEAN CORPUSCULAR HGB CONC 33.7 g/dL (32.0-36.0); MEAN CORPUSCULAR VOLUME 88.3 fL (80.0-94.0); MEAN PLATELET VOLUME 10.2 fL (7.4-11.4); MONOCYTES % (AUTO) 23.7 %; PLT - PLATELET COUNT 237 10^3/uL (130-450); RED BLOOD COUNT 4.97 10^6/uL (4.70-6.10); RED CELL DISTRIBUTION WIDTH 14.9 % (12.0-15.0); WHITE BLOOD COUNT 5.7 x10^3/uL (4.8-10.8)
[2024-02-06] MEDS: ERYTHROMYCIN OPHTH OINT 1 GM TUBE EACHEYE STA (16:31)
[2024-02-06 16:35] LABS: ABNORMAL LYMPHS % (MANUAL) 0 %
[2024-02-06 16:48] LABS: ALBUMIN 3.9 g/dL (3.2-5.5); ALBUMIN/GLOBULIN RATIO 1.3 (1.0-2.2); BILIRUBIN,TOTAL 0.5 mg/dL (0.2-1.0); CALCIUM 9.5 mg/dL (8.5-10.3); CREATININE 0.8 mg/dL (0.6-1.3)
[2024-02-06 16:57] LABS: BAND NEUTROPHILS % (MANUAL) 9 %; EOSINOPHILS # (MANUAL) 0.1 10^3/uL (0-0.7); LYMPHOCYTES # (MANUAL) 1.3 10^3/uL (1.5-3.5); LYMPHOCYTES % (MANUAL) 23 %; METAMYELOCYTES % (MANUAL) 4 %; MONOCYTES # (MANUAL) 1.6 10^3/uL (0.0-1.0); NEUTROPHILS # (MANUAL) 2.5 10^3/uL (1.5-6.6); PLATELET MORPHOLOGY NORMAL APPEARANCE (NORMAL); RBC MORPHOLOGY (MULTIPLE) NORMAL APPEARANCE (NORMAL)
[2024-02-06 16:58] LABS: DIFFERENTIAL COMMENT MANUAL DIFFERENTIAL; PLATELET ESTIMATE, MANUAL NORMAL (130-450,000) (NORMAL)
[2024-02-06 17:38] VITALS: BP 142/81; O2SAT 96
== END 2024-02-06 17:35 | disposition home or self-care (01) ==
LOC: ED 11:32
DX: H10.33 Unspecified acute conjunctivitis, bilateral (principal); E11.65 Type 2 diabetes mellitus with hyperglycemia; J34.89 Other specified disorders of nose and nasal sinuses; Z20.818 Contact with and (suspected) exposure to other bacterial communicable diseases; Z20.822 Contact with and (suspected) exposure to COVID-19; Z20.828 Contact with and (suspected) exposure to other viral communicable diseases; Z79.84 Long term (current) use of oral hypoglycemic drugs
CPT/HCPCS: 36415; 71045; 80053; 85025; 87633; 94640; 99284; A9270; J3490

== ENCOUNTER 2024-02-22 08:17 | Outpatient (CLI) | payer OTHER ==
[2024-02-22 12:28] LABS: BASOPHILS # (AUTO) 0.1 10^3/uL (0.0-0.1); BASOPHILS % (AUTO) 1.1 %; EOSINOPHILS # (AUTO) 0.2 10^3/uL (0.0-0.7); EOSINOPHILS % (AUTO) 4.1 %; HCT - HEMATOCRIT 45.3 % (42.0-52.0); HGB - HEMOGLOBIN 15.3 g/dL (14.0-18.0); LYMPHOCYTES % (AUTO) 36.3 %; MEAN CORPUSCULAR HEMOGLOBIN 30.2 pg (27.0-31.0); MEAN CORPUSCULAR HGB CONC 33.8 g/dL (32.0-36.0); MEAN CORPUSCULAR VOLUME 89.3 fL (80.0-94.0); MEAN PLATELET VOLUME 10.7 fL (7.4-11.4); MONOCYTES # (AUTO) 0.7 10^3/uL (0.0-1.0); MONOCYTES % (AUTO) 13.2 %; NEUTROPHILS # (AUTO) 2.5 10^3/uL (1.5-6.6); NEUTROPHILS % (AUTO) 44.8 %; PLT - PLATELET COUNT 226 10^3/uL (130-450); RED BLOOD COUNT 5.07 10^6/uL (4.70-6.10); RED CELL DISTRIBUTION WIDTH 15.4 % (12.0-15.0); WHITE BLOOD COUNT 5.6 x10^3/uL (4.8-10.8)
[2024-02-22 12:31] LABS: CREATININE,URINE 33.5 mg/dL; MICROALBUM/CREATININE RATIO,UR 271.6 ug/mg (<30.0); MICROALBUMIN,URINE 9.1 mg/dL
[2024-02-22 12:35] LABS: CHOL/HDL RATIO 8.1 (<5.0); CHOLESTEROL 267 mg/dL; HDL CHOLESTEROL 33 mg/dL
[2024-02-22 12:47] LABS: ESTIMATED AVERAGE GLUCOSE 318 mg/dL (70-100); HEMOGLOBIN A1c% 12.7 % (4.27-6.07); TRIGLYCERIDES 2666 mg/dL
[2024-02-22 13:03] LABS: LDL CHOLESTEROL,DIRECT 60 mg/dL (75-193); LDLD/HDL RATIO 1.8 (<3.6)
[2024-02-22 13:13] LABS: POTASSIUM 4.1 mmol/L (3.5-4.5)
[2024-02-22 13:27] LABS: ALBUMIN 3.9 g/dL (3.2-5.5); ALBUMIN/GLOBULIN RATIO 1.8 (1.0-2.2); ALKALINE PHOSPHATASE 60 IU/L (42-121); ALT ALANINE AMINOTRANSFERASE 20 IU/L (10-60); AST ASPARTATE AMINOTRANSFERASE 17 IU/L (10-42); BILIRUBIN,TOTAL 0.5 mg/dL (0.2-1.0); BUN - BLOOD UREA NITROGEN 14 mg/dL (6-20); CALCIUM 9.4 mg/dL (8.5-10.3); CARBON DIOXIDE - CO2 24 mmol/L (21-32); CHLORIDE 96 mmol/L (101-111); CREATININE 0.8 mg/dL (0.6-1.3); GFR - MDRD 99 (>89); GLUCOSE 381 mg/dL (74-104); SODIUM 130 mmol/L (135-145); TOTAL PROTEIN 6.1 g/dL (6.4-8.9)
== END 2024-02-22 08:18 | disposition home or self-care (01) ==
LOC: LAB.N 08:17
PROVIDERS: ATTEND Nurse Practitioner
DX: I10 Essential (primary) hypertension (principal); E78.1 Pure hyperglyceridemia; E78.5 Hyperlipidemia, unspecified; E11.9 Type 2 diabetes mellitus without complications; R05.9 Cough, unspecified
CPT/HCPCS: 36415; 80053; 80061; 82043; 82570; 83036; 83721; 85025